=== PATIENT | female | born 1955 | race Caucasian/White ===

== ENCOUNTER 2016-08-29 13:29 | Outpatient (CLI) | payer SELFPAY | END 2016-08-29 13:30 | disposition home or self-care (01) | DX: R35.0 Frequency of micturition (principal) ==

== ENCOUNTER 2018-02-21 08:31 | Outpatient (CLI) | payer OTHER ==
--- NOTE | 2018-02-21 09:14 | XRAY Report ---
Procedure Date: 02/21/2018 Accession Number: [id number] / [id number] Procedure: XR - Chest 2 View X-Ray CPT Code: 86048 FULL RESULT: EXAM: CHEST RADIOGRAPHY EXAM DATE: 02/21/2018 08:59 AM. CLINICAL HISTORY: OSTEOPOROSIS,MEDICATION USE,OTHER FATIGUE. COMPARISON: 05/18/2010. TECHNIQUE: 2 views. FINDINGS: Lungs/Pleura: Right hilar surgical clips. No focal opacities evident. No pleural effusion. No pneumothorax. Mild elevation of the right hemidiaphragm similar to prior. Mediastinum: Heart and mediastinal contours are unremarkable. Other: No acute osseous abnormality. Nonvisualized right sixth rib may relate to prior thoracotomy. IMPRESSION: No acute cardiopulmonary abnormality. RADIA
--- NOTE | 2018-02-21 13:02 | DEXA Report ---
Procedure Date: 02/21/2018 Accession Number: [id number] / [id number] Procedure: DEX - Dexa Spine and/or Hip CPT Code: FULL RESULT: EXAM: DEXA SCAN DATE: 02/21/2018. HISTORY: 63-year-old postmenopausal female with low bone mineral density. Medication use. COMPARISON: None. TECHNIQUE: Lumbar spine and left hip were evaluated. FINDINGS: See separate data worksheet. Lumbar spine: Bone mineral density 1.118 g/sq cm, T score -0.4, Z score 0.1. Left hip: Neck: Bone mineral density 0.811 g/sq cm, T score -1.6, Z score -0.8. Total: Bone mineral density 0.896 g/sq cm, T score -0.9, Z score -0.4. IMPRESSION: Lumbar spine: Normal. Left hip: Normal. T score at or above -1 is normal. T score between -1 and 2.5 = Osteopenia T score at or below -2.5 = Osteoporosis. RADIA
== END 2018-02-21 08:32 | disposition home or self-care (01) ==
LOC: DI 08:31
PROVIDERS: ATTEND Physician Assistant Medical
DX: R53.83 Other fatigue (principal); M81.0 Age-related osteoporosis without current pathological fracture; Z78.0 Asymptomatic menopausal state; Z79.899 Other long term (current) drug therapy; Z85.43 Personal history of malignant neoplasm of ovary; Z80.1 Family history of malignant neoplasm of trachea, bronchus and lung
CPT/HCPCS: 71046; 77080

== ENCOUNTER 2018-11-03 11:45 | Outpatient (CLI) | payer BC ==
--- NOTE | 2018-11-03 13:06 | XRAY Report ---
Reason: POSTMENOPAUSAL STATE, BRONCHOGENIC CYST Procedure Date: 11/03/2018 Accession Number: [id number] / [id number] Procedure: XR - Chest 2 View X-Ray CPT Code: 70619 FULL RESULT: EXAM: CHEST RADIOGRAPHY EXAM DATE: 11/03/2018 12:07 PM. CLINICAL HISTORY: Postmenopausal state, bronchogenic cyst. COMPARISON: CHEST 2 VIEW 02/21/2018 8:53 AM. TECHNIQUE: 2 views. FINDINGS: Lungs/Pleura: There are postop changes with small surgical clips in the right pulmonary hilum, elevated right hemidiaphragm and chronic rib changes in the right posterolateral 6th, 8th and 9th ribs again, similar to prior exam. No new focal opacities evident. No pleural effusion. No pneumothorax. Mediastinum: Heart and mediastinal contours are unremarkable. Other: No new bony lesion seen. IMPRESSION: No significant interval change of the 2-view chest radiography with postop changes in the right chest. RADIA
== END 2018-11-03 11:46 | disposition home or self-care (01) ==
LOC: DI 11:45
PROVIDERS: ATTEND Physician Assistant Medical
DX: J98.4 Other disorders of lung (principal)
CPT/HCPCS: 71046

== ENCOUNTER 2018-11-07 15:24 | Outpatient (CLI) | payer BC ==
--- NOTE | 2018-11-10 14:56 | DEXA Report ---
Reason: POSTMENOPAUSAL STATE Procedure Date: 11/07/2018 Accession Number: [id number] / [id number] Procedure: DEX - Dexa Spine and/or Hip CPT Code: FULL RESULT: EXAM: Dexa Spine and/or Hip DATE: 11/07/2018 4:01 PM CLINICAL HISTORY: POSTMENOPAUSAL STATE TECHNIQUE: Dual energy x-ray absorptiometry (DXA) was performed on a [employer] System. Regions measured are the AP Spine, femoral neck, and if needed forearm. COMPARISON: 02/21/2018. In accordance with the International Society for Clinical Densitometry (ISCD) guidelines, data from previous exams may be reanalyzed using current recommendations and techniques. This is done to allow a more accurate basis for comparison with the current study. FINDINGS: The data for the lumbar spine is as follows: BMD (g/cm/cm) T-SCORE Z-SCORE REGION L1 0.942 -1.6 -1.1 L2 1.187 -0.1 0.4 L3 1.247 0.4 0.9 L4 excluded TOTAL 1.118 -0.3 0.2 NOTE: All evaluable vertebrae are used for classification The data for the hip is as follows: BMD (g/cm/cm) T-SCORE Z-SCORE REGION Neck 0.814 -1.6 -0.8 TOTAL 0.892 -0.9 -0.5 NOTE: The femoral neck or total proximal femur, whichever is lowest, is used for classification. DXA RESULTS SUMMARY: Spine SCAN DATE AGE BMD CHANGE VS CHANGE VS PREVIOUS PREVIOUS % [birth year]07/2018 62.7 1.133 0.015 1.3 02/21/2018 63.0 1.118 * Denotes significant change at the 95% confidence level. Denotes dissimilar scan types or analysis methods. DXA RESULTS SUMMARY: Hip SCAN DATE AGE BMD CHANGE VS CHANGE VS PREVIOUS PREVIOUS % [birth year]2018 62.7 0.892 -0.004 -0.4 02/21/2018 63.0 0.896 * Denotes significant change at the 95% confidence level. Denotes dissimilar scan types or analysis methods. IMPRESSION: THE WHO CLASSIFICATION BASED ON THE INTERNATIONAL REFERENCE STANDARD IS OSTEOPENIA. THE FRACTURE RISK IS INCREASED. RECOMMENDATION: Patients with diagnosis of osteoporosis or osteopenia should have regular bone mineral density assessment. For those eligible for Medicare, routine testing is allowed once every 2 years. Testing frequency can be increased for patients who have rapidly progressing disease or for those who are receiving medical therapy to restore bone mass. COMMENT: World Health Organization (WHO) definitions for osteoporosis and osteopenia: NORMAL BMD: T-score at -1.0 or higher, fracture risk is low OSTEOPENIA BMD: T-score between -1.0 and -2.5, fracture risk is increased. OSTEOPOROSIS BMD: T-score at -2.5 or lower, fracture risk is high. National Osteoporosis Foundation recommends: 1. Obtain adequate dietary calcium (at least 1200 mg per day) and vitamin D (400-800 international units per day). 2. Participate, as appropriate, in regular weightbearing and muscle-strengthening exercise. 3. Avoid tobacco use and reduce alcohol and caffeine intake. 4. For more detailed information see the website at www.NOF.org.
== END 2018-11-07 15:25 | disposition home or self-care (01) ==
LOC: DI 15:24
PROVIDERS: ATTEND Physician Assistant Medical
DX: M85.88 Other specified disorders of bone density and structure, other site (principal)
CPT/HCPCS: 77080

== ENCOUNTER 2018-11-07 15:30 | Outpatient (CLI) | payer BC ==
--- NOTE | 2018-11-10 09:02 | Mammography Report ---
Reason: SCREENING MAMMO Procedure Date: 11/07/2018 Accession Number: [id number] / [id number] Procedure: NATALIE - Screening Mammo w/Mg CPT Code: FULL RESULT: EXAM: Screening Mammo w/Mg DATE: 11/07/2018 4:10 PM CLINICAL HISTORY: Screening exam. Personal history of ovarian cancer at the age of 35. History of breast reduction mammoplasty. TECHNIQUE: (B) - Bilateral CC and MLO views were obtained. COMPARISON: 04/12/2011 and 02/16/2010. PARENCHYMAL PATTERN: (F) - The breast(s) demonstrate(s) diffuse fatty replacement. FINDINGS: There are no suspicious masses, calcifications, or areas of distortion. IMPRESSION: Negative examination. BI-RADS category 1. RECOMMENDATION: (ANNUAL) - Recommend routine annual screening mammography. BI-RADS CATEGORY: (1) - Negative. STANDARD QUALIFYING STATEMENTS: 1. This examination was not reviewed with the aid of Computer-Aided Detection (CAD). 2. A negative or benign imaging report should not preclude biopsy if clinically suspicious findings are present. 3. Dense breasts may obscure an underlying neoplasm. 4. This examination was reviewed with the aid of 3D breast imaging (tomosynthesis).
== END 2018-11-07 15:31 | disposition home or self-care (01) ==
LOC: DI 15:30
PROVIDERS: ATTEND Physician Assistant Medical
DX: Z12.31 Encounter for screening mammogram for malignant neoplasm of breast (principal)
CPT/HCPCS: 77063; 77067

== ENCOUNTER 2019-02-18 13:00 | Outpatient (CLI) | payer BC ==
[2019-02-18 13:46] LABS: ALBUMIN 4.3 g/dL (3.2-5.5); ALBUMIN/GLOBULIN RATIO 1.3 (1.0-2.2); BASOPHILS # (AUTO) 0.1 10^3/uL (0.0-0.1); BASOPHILS % (AUTO) 0.6 %; BILIRUBIN,TOTAL 0.7 mg/dL (0.2-1.0); CALCIUM 9.8 mg/dL (8.5-10.3); CREATININE 0.8 mg/dL (0.4-1.0); EOSINOPHILS # (AUTO) 0.1 10^3/uL (0.0-0.7); EOSINOPHILS % (AUTO) 1.8 %; HGB - HEMOGLOBIN 14.1 g/dL (12.0-16.0); LYMPHOCYTES # (AUTO) 1.6 10^3/uL (1.5-3.5); LYMPHOCYTES % (AUTO) 19.7 %; MEAN CORPUSCULAR HEMOGLOBIN 29.3 pg (27.0-31.0); MEAN CORPUSCULAR HGB CONC 32.9 g/dL (32.0-36.0); MEAN CORPUSCULAR VOLUME 89.2 fL (81.0-99.0); MEAN PLATELET VOLUME 10.9 fL (7.9-10.8); MONOCYTES # (AUTO) 0.8 10^3/uL (0.0-1.0); MONOCYTES % (AUTO) 9.6 %; NEUTROPHILS # (AUTO) 5.4 10^3/uL (1.5-6.6); NEUTROPHILS % (AUTO) 68.2 %; PLT - PLATELET COUNT 196 10^3/uL (130-450); RED BLOOD COUNT 4.81 10^6/uL (4.20-5.40); RED CELL DISTRIBUTION WIDTH 13.2 % (12.0-15.0); TOTAL PROTEIN 7.7 g/dL (6.7-8.2); WHITE BLOOD COUNT 7.9 x10^3/uL (4.8-10.8)
[2019-02-18 15:05] LABS: THYROID STIMULATING HORMONE 7.57 uIU/mL (0.34-5.60)
[2019-02-18 15:07] LABS: FREE T4 (FREE THYROXINE) 1.08 ng/dL (0.58-1.64)
== END 2019-02-18 13:01 | disposition home or self-care (01) ==
LOC: LAB 13:00
PROVIDERS: ATTEND Family Medicine
DX: I10 Essential (primary) hypertension (principal); E03.9 Hypothyroidism, unspecified
CPT/HCPCS: 36415; 80053; 84439; 84443; 84481; 85025

== ENCOUNTER 2019-05-18 07:42 | Outpatient (CLI) | payer BC ==
[2019-05-18 08:07] LABS: HGB - HEMOGLOBIN 14.1 g/dL (12.0-16.0); MEAN CORPUSCULAR HEMOGLOBIN 28.8 pg (27.0-31.0); MEAN CORPUSCULAR HGB CONC 32.9 g/dL (32.0-36.0); MEAN CORPUSCULAR VOLUME 87.5 fL (81.0-99.0); MEAN PLATELET VOLUME 10.5 fL (7.9-10.8); RED BLOOD COUNT 4.89 10^6/uL (4.20-5.40); RED CELL DISTRIBUTION WIDTH 13.4 % (12.0-15.0); WHITE BLOOD COUNT 9.3 x10^3/uL (4.8-10.8)
[2019-05-18 08:29] LABS: T4 (THYROXINE) 11.8 ug/dL (6.09-12.23)
[2019-05-18 08:33] LABS: THYROID STIMULATING HORMONE 0.32 uIU/mL (0.34-5.60)
[2019-05-18 08:35] LABS: FREE T4 (FREE THYROXINE) 1.3 ng/dL (0.58-1.64)
[2019-05-18 08:49] LABS: URIC ACID 4.9 mg/dL (2.6-7.2)
[2019-05-18 08:57] LABS: RHEUMATOID FACTOR NEGATIVE (Negative)
[2019-05-20 20:12] LABS: ANA SCREEN NEGATIVE (NEGATIVE)
== END 2019-05-18 07:43 | disposition home or self-care (01) ==
LOC: LAB 07:42
PROVIDERS: ATTEND Physician Assistant Medical
DX: E03.9 Hypothyroidism, unspecified (principal); M25.50 Pain in unspecified joint
CPT/HCPCS: 36415; 84436; 84439; 84443; 84550; 85027; 85651; 86038; 86140; 86200; 86430

== ENCOUNTER 2019-09-11 15:27 | Outpatient (CLI) | payer BC ==
[2019-09-11 16:30] LABS: THYROID STIMULATING HORMONE 0.38 uIU/mL (0.34-5.60)
[2019-09-11 16:32] LABS: FREE T4 (FREE THYROXINE) 0.9 ng/dL (0.58-1.64)
--- NOTE | 2019-09-12 02:31 | XRAY Report ---
Reason: HYPOTHYROID,HAND PAIN Procedure Date: 09/11/2019 Accession Number: [id number] / [id number] Procedure: XR - Hand 2 View BILAT CPT Code: Final Report FULL RESULT: EXAMS: 1. Right Hand Radiography 2. Left Hand Radiography EXAM DATE: 09/11/2019 05:05 PM. CLINICAL HISTORY: HYPOTHYROID, HAND PAIN. COMPARISON: XR HAND 2 VIEW 10/26/2008 2:53 PM. TECHNIQUE: 3 views each hand. FINDINGS: Right: Bones: Osteopenia. No fractures. 6 mm cyst in the proximal first metacarpal with well-defined sclerotic borders likely represents a subchondral cyst. Joints: First carpometacarpal joint space narrowing with marginal osteophyte formation and sclerosis. Narrowing and marginal osteophyte formation in the interphalangeal joints, greatest at the first interphalangeal joint. No subluxation. Soft Tissues: Soft tissue swelling at the first interphalangeal joint. Left: Bones: Normal. No fractures or bone lesions. Joints: Degenerative changes at the first carpometacarpal joint space with joint space narrowing, osteophytes, and subchondral sclerosis and cysts, increased since the prior exam. Mild narrowing of the proximal and distal interphalangeal joints with osteophyte formation at the first interphalangeal joint. No subluxation. Soft Tissues: Normal. No soft tissue swelling. IMPRESSION: 1. Extensive osteoarthritic changes in the right interphalangeal joints and first carpometacarpal joints. 2. Slightly increased osteoarthritis in the left first carpometacarpal joint. RADIA
== END 2019-09-11 15:28 | disposition home or self-care (01) ==
LOC: LAB 15:27 → DI 15:28
PROVIDERS: ATTEND Family Medicine
DX: M18.0 Bilateral primary osteoarthritis of first carpometacarpal joints (principal); M19.042 Primary osteoarthritis, left hand; M19.041 Primary osteoarthritis, right hand; E03.9 Hypothyroidism, unspecified
CPT/HCPCS: 36415; 84439; 84443; 84481; 85651; 86140

== ENCOUNTER 2019-10-09 08:09 | Outpatient (CLI) | payer BC ==
[2019-10-09] MEDS ORDERED: IOVERSOL 320 100 ML VIAL IVP ONE ×2 (09:20→10:53)
[2019-10-09] MEDS ORDERED: IOVERSOL 320 50 ML VIAL ONE (09:20)
[2019-10-09 09:35] LABS: CALCIUM 8.9 mg/dL (8.5-10.3); CREATININE 0.7 mg/dL (0.4-1.0)
[2019-10-09] MEDS ORDERED: IOVERSOL 320 50 ML VIAL PO ONE (10:53)
--- NOTE | 2019-10-10 09:53 | CT Report ---
Reason: CHRONIC ABD PAIN, STG 3 OVARIAN CA Procedure Date: 10/09/2019 Accession Number: [id number] / [id number] Procedure: CT - Abdomen/Pelvis W CPT Code: Final Report FULL RESULT: EXAM: CT ABDOMEN AND PELVIS EXAM DATE: 10/09/2019 10:48 AM. CLINICAL HISTORY: Chronic abdominal pain, stage III ovarian cancer. COMPARISONS: CT of the abdomen and pelvis from 11/08/2009. TECHNIQUE: Routine helical CT imaging was performed through the abdomen and pelvis. IV contrast: 100 cc Optiray 320. Enteric contrast: Yes. Reconstructions: Coronal and sagittal. In accordance with CT protocol optimization, one or more of the following dose reduction techniques were utilized for this exam: automated exposure control, adjustment of mA and/or KV based on patient size, or use of iterative reconstructive technique. FINDINGS: Lung Bases: There are linear opacities in the right lower lobe and lingula, which are new from the prior examination but suggestive of atelectasis or scar. No pleural effusion. Partially visualized mediastinal mass, demonstrated on the prior examination, is no longer demonstrated. Liver: The dome of the right hepatic lobe is not included in the examination. There is diffuse low attenuation of the liver, compatible with steatosis. No focal lesions are demonstrated. Gallbladder/Bile Ducts: Unremarkable. Spleen: Within normal limits. Pancreas: Unremarkable. Adrenal Glands: No nodules. Kidneys: No focal lesions or hydronephrosis. Peritoneal Cavity/Bowel: There is a small hiatal hernia. No evidence of bowel obstruction or inflammation. Cecum is located in the pelvis. There appears to be either a short appendix or appendiceal remnant, which is normal in caliber (series 10, image 33). There is diverticulosis of the descending and sigmoid colon. No evidence for acute diverticulitis. Pelvic Organs: The uterus and ovaries are surgically absent. There are also [place] along the iliac vessels, suggestive of previous node dissection. No adenopathy or free fluid. Vasculature: No abdominal aortic aneurysm. Bones: No suspicious osseous lesion. Multilevel degenerative changes are present in the lumbar spine. There is sacralization of the right L5 transverse process. Other: No retroperitoneal adenopathy. IMPRESSION: 1. No evidence of acute infectious or inflammatory process in the abdomen or pelvis. 2. Postsurgical changes from hysterectomy, bilateral salpingo-oophorectomy, and pelvic node dissection. No findings concerning for metastatic disease in the abdomen or pelvis. Previous partially visualized mediastinal mass is no longer demonstrated. 3. Hepatic steatosis. RADIA
== END 2019-10-09 08:10 | disposition home or self-care (01) ==
LOC: DI 08:09
PROVIDERS: ATTEND Nurse Practitioner
DX: R10.9 Unspecified abdominal pain (principal); K76.0 Fatty (change of) liver, not elsewhere classified; Z90.710 Acquired absence of both cervix and uterus; C56.9 Malignant neoplasm of unspecified ovary; Z90.79 Acquired absence of other genital organ(s); Z90.722 Acquired absence of ovaries, bilateral
CPT/HCPCS: 36415; 74177; 80048; Q9967

== ENCOUNTER 2020-06-13 11:32 | Outpatient (CLI) | payer BC ==
[2020-06-13 12:10] LABS: BASOPHILS % (AUTO) 0.6 %; EOSINOPHILS # (AUTO) 0.2 10^3/uL (0.0-0.7); EOSINOPHILS % (AUTO) 2.7 %; HGB - HEMOGLOBIN 13.3 g/dL (12.0-16.0); LYMPHOCYTES # (AUTO) 1.3 10^3/uL (1.5-3.5); MEAN CORPUSCULAR HEMOGLOBIN 29.2 pg (27.0-31.0); MEAN CORPUSCULAR HGB CONC 33.3 g/dL (32.0-36.0); MEAN CORPUSCULAR VOLUME 87.5 fL (81.0-99.0); MEAN PLATELET VOLUME 10.8 fL (7.9-10.8); MONOCYTES # (AUTO) 0.7 10^3/uL (0.0-1.0); MONOCYTES % (AUTO) 10.8 %; NEUTROPHILS # (AUTO) 4.5 10^3/uL (1.5-6.6); NEUTROPHILS % (AUTO) 66.8 %; PLT - PLATELET COUNT 177 10^3/uL (130-450); RED BLOOD COUNT 4.56 10^6/uL (4.20-5.40); RED CELL DISTRIBUTION WIDTH 12.6 % (12.0-15.0); WHITE BLOOD COUNT 6.8 x10^3/uL (4.8-10.8)
[2020-06-13 12:29] LABS: ALBUMIN 3.8 g/dL (3.2-5.5); ALBUMIN/GLOBULIN RATIO 1.3 (1.0-2.2); ALKALINE PHOSPHATASE 67 IU/L (42-121); ALT ALANINE AMINOTRANSFERASE 27 IU/L (10-60); AST ASPARTATE AMINOTRANSFERASE 26 IU/L (10-42); BILIRUBIN,TOTAL 0.6 mg/dL (0.2-1.0); BUN - BLOOD UREA NITROGEN 14 mg/dL (6-20); CALCIUM 9.4 mg/dL (8.5-10.3); CARBON DIOXIDE - CO2 27 mmol/L (21-32); CHLORIDE 104 mmol/L (101-111); CHOL/HDL RATIO 2.8 (<4.4); CHOLESTEROL 192 mg/dL; CREATININE 0.7 mg/dL (0.4-1.0); GLUCOSE 108 mg/dL (70-100); HDL CHOLESTEROL 68 mg/dL; LDL CHOLESTEROL,CALCULATED 113 mg/dL; LDL/HDL RATIO 1.7 (<4.4); SODIUM 142 mmol/L (135-145); TOTAL PROTEIN 6.8 g/dL (6.7-8.2); VLDL CHOLESTEROL 11 mg/dL
[2020-06-13 12:35] LABS: CA 125 26.6 U/mL (0.0-35.0)
[2020-06-13 13:27] LABS: FREE T4 (FREE THYROXINE) 1.52 ng/dL (0.58-1.64)
== END 2020-06-13 11:33 | disposition home or self-care (01) ==
LOC: LAB 11:32
PROVIDERS: ATTEND Nurse Practitioner
DX: M25.50 Pain in unspecified joint (principal); E03.9 Hypothyroidism, unspecified; I10 Essential (primary) hypertension; M81.0 Age-related osteoporosis without current pathological fracture; E78.2 Mixed hyperlipidemia; F32.9 Major depressive disorder, single episode, unspecified; C56.9 Malignant neoplasm of unspecified ovary
CPT/HCPCS: 36415; 80053; 80061; 83721; 84439; 84443; 85025; 86304

== ENCOUNTER 2020-06-14 13:54 | Outpatient (CLI) | payer BC ==
--- NOTE | 2020-06-14 16:46 | XRAY Report ---
PROCEDURE: Hip w/Pelvis 2-3V LT INDICATIONS: LT HIP PAIN TECHNIQUE: AP pelvis with lateral view(s) of the bilateral hip(s). COMPARISON: None. FINDINGS: Bones: No fractures or dislocations. Pelvic ring appears intact. No suspicious bony lesions. Mild bilateral degenerative hip joint space narrowing is present. No erosions. Changes are present within the lower lumbar spine. Soft tissues: The visualized bowel gas pattern is normal. No suspicious soft tissue calcifications. IMPRESSION: Degenerative hip changes suggestive of arthritis. Reviewed by: Kaelyn Mcghee MD on 06/14/2020 4:44 PM PST Approved by: Kaelyn Mcghee MD on 06/14/2020 4:44 PM PST Station ID: [id number]
== END 2020-06-14 13:55 | disposition home or self-care (01) ==
LOC: DI 13:54
PROVIDERS: ATTEND Nurse Practitioner
DX: M16.12 Unilateral primary osteoarthritis, left hip (principal)

== ENCOUNTER 2020-07-18 13:26 | Emergency (ER) | payer BC ==
[2020-07-18 14:03] LABS: BASOPHILS % (AUTO) 0.5 %; EOSINOPHILS # (AUTO) 0.1 10^3/uL (0.0-0.7); EOSINOPHILS % (AUTO) 1.3 %; LYMPHOCYTES # (AUTO) 1.4 10^3/uL (1.5-3.5); LYMPHOCYTES % (AUTO) 16.2 %; MEAN CORPUSCULAR HEMOGLOBIN 28.5 pg (27.0-31.0); MEAN CORPUSCULAR HGB CONC 33.1 g/dL (32.0-36.0); MEAN PLATELET VOLUME 10.4 fL (7.9-10.8); MONOCYTES # (AUTO) 0.9 10^3/uL (0.0-1.0); MONOCYTES % (AUTO) 10.7 %; NEUTROPHILS # (AUTO) 5.9 10^3/uL (1.5-6.6); NEUTROPHILS % (AUTO) 71.1 %; PLT - PLATELET COUNT 186 10^3/uL (130-450); RED BLOOD COUNT 4.92 10^6/uL (4.20-5.40); RED CELL DISTRIBUTION WIDTH 13.1 % (12.0-15.0); WHITE BLOOD COUNT 8.3 x10^3/uL (4.8-10.8)
[2020-07-18 14:22] LABS: ALBUMIN 3.8 g/dL (3.2-5.5); BILIRUBIN,TOTAL 1.3 mg/dL (0.2-1.0); CALCIUM 9.5 mg/dL (8.5-10.3); CREATININE 0.8 mg/dL (0.4-1.0); TOTAL PROTEIN 7.7 g/dL (6.7-8.2)
[2020-07-18 15:17] VITALS: BP 141/86
--- NOTE | 2020-07-18 15:36 | ED Physician Documentation ---
PD HPI ABD PAIN - Stated complaint Stated Complaint: ABD PX - Chief complaint Chief Complaint: Abd Pain - History obtained from History obtained from: Patient - History of Present Illness Timing - onset: How many days ago (2) Timing - duration: Days (2) Timing - details: Gradual onset Pain level max: 8 Pain level now: 6 Quality: Aching, Pain Location: LLQ Radiation: No: Chest, , Lower back, Left flank, Left shoulder, Right flank, Right shoulder, Upper back Improved by: Laying still Worsened by: Palpation Associated symptoms: Diarrhea (Diarrhea with a small amount of bright red blood per rectum.), Hematochezia. No: Fever, Nausea, Vomiting, Hematemesis, Dysuria, Hematuria, Chest pain, Near syncope / syncope, Loss of appetite, Weight loss Similar symptoms before: Diagnosis (Diverticulosis) Review of Systems Constitutional: denies: Fever, Chills Cardiac: denies: Chest pain / pressure Respiratory: denies: Cough GI: reports: Abdominal Pain (Left lower quadrant abdominal pain. Nonradiating.). denies: Vomiting : denies: Dysuria Skin: denies: Rash Musculoskeletal: denies: Neck pain, Back pain Neurologic: denies: Headache PD PAST MEDICAL HISTORY - Past Medical History Past Medical History: Yes Cardiovascular: Hypertension, High cholesterol Respiratory: None Neuro: Tremors Endocrine/Autoimmune: HyPOthyroidism GI: Hiatal hernia, Diverticulitis IMMUNOCHEMIST: Ovarian cancer : None HEENT: None Psych: None Musculoskeletal: Osteoarthritis Derm: None - Past Surgical History Past Surgical History: Yes General: Appendectomy /IMMUNOCHEMIST: section, Hysterectomy, Oophrectomy - Present Medications Home Medications: Ambulatory Orders Medication Instructions Recorded Confirmed Amlodipine Besylate [Norvasc] 5 mg PO DAILY PM 07/18/20 07/18/20 Amox/Clav 875/125 [Augmentin] 1 tab PO Q8H #30 tablet 07/18/20 Aspirin EC [Ecotrin] 650 mg PO TID PRN 07/18/20 07/18/20 Furosemide [Lasix] 10 - 20 mg PO DAILY PRN 07/18/20 07/18/20 Levothyroxine Sodium [Euthyrox] 100 mcg PO DAILY 07/18/20 07/18/20 Losartan [Cozaar] 50 mg PO DAILY 07/18/20 07/18/20 Ondansetron Odt [Zofran] 4 mg TL Q6H PRN #10 tablet 07/18/20 - Allergies Allergies/Adverse Reactions: Allergies Allergy/AdvReac Type Severity Reaction Status Date / Time celecoxib [From Celebrex] Allergy Unknown Verified 07/18/20 13:49 ibuprofen Allergy Unknown Verified 07/18/20 13:49 lisinopril Allergy Unknown Verified 07/18/20 13:49 - Social History Does the pt smoke?: No Smoking Status: Never smoker Does the pt drink ETOH?: No Does the pt have substance abuse?: No - Immunizations Immunizations are current?: Yes PD ED PE NORMAL - Vitals Vital signs reviewed: Yes - General General: Alert and oriented X 3, No acute distress - HEENT HEENT: Moist mucous membranes - Neck Neck: Supple, no meningeal sign - Cardiac Cardiac: RRR - Respiratory Respiratory: No respiratory distress, Clear bilaterally - Abdomen Abdomen: Soft, Other (Tender to palpation left lower quadrant. No peritoneal signs.) - Female Female : Pt declined - Back Back: No spinal TTP - Derm Derm: Warm and dry - Neuro Neuro: Alert and oriented X 3 - Psych Psych: Normal mood, Normal affect Results - Vitals Vitals: Vital Signs - 24 hr 07/18/20 07/18/20 07/18/20 13:41 14:08 15:16 Temperature 37.3 C 37.4 C 37.6 C Heart Rate 100 90 73 Respiratory 16 16 16 Rate Blood Pressure 150/99 H 169/88 H 141/86 H O2 Saturation 97 98 99 Oxygen O2 Source Room air - Labs Labs: Laboratory Tests 07/18/20 07/18/20 07/18/20 13:58 13:58 16:10 WBC 8.3 RBC 4.92 Hgb 14.0 Hct 42.3 MCV 86.0 MCH 28.5 MCHC 33.1 RDW 13.1 Plt Count 186 MPV 10.4 Neut # (Auto) 5.9 Lymph # (Auto) 1.4 L [place] # (Auto) 0.9 Eos # (Auto) 0.1 Baso # (Auto) 0.0 Absolute Nucleated RBC 0.00 Nucleated RBC % 0.0 Sodium 141 Potassium 3.6 Chloride 104 Carbon Dioxide 23 Anion Gap 14.0 H BUN 11 Creatinine 0.8 Estimated GFR (MDRD) 72 L Glucose 104 H Calcium 9.5 Total Bilirubin 1.3 H AST 23 ALT 27 Alkaline Phosphatase 88 Total Protein 7.7 Albumin 3.8 Globulin 3.9 Albumin/Globulin Ratio 1.0 Lipase 32 Urine Color YELLOW Urine Clarity CLEAR Urine pH 6.5 Ur Specific [place] <=1.005 Urine Protein NEGATIVE Urine Glucose (UA) NEGATIVE Urine Ketones NEGATIVE Urine Occult Blood NEGATIVE Urine Nitrite NEGATIVE Urine Bilirubin NEGATIVE Urine Urobilinogen 0.2 (NORMAL) Ur Leukocyte Esterase NEGATIVE Ur Microscopic Review NOT INDICATED Urine Culture Comments NOT INDICATED - Rads (name of study) CT abdomen and pelvis Radiology: Prelim report reviewed, EMP read contemporaneously, See rad report PD MEDICAL DECISION MAKING - ED course Complexity details: reviewed results, re-evaluated patient, considered differential, d/w patient ED course: 65-year-old female with abdominal pain. Found to have a mild acute diverticulitis of the descending and sigmoid colon. Discussed risks and benefits of antibiotics including C. difficile diarrhea. Also discussed that mild case of diverticulitis may not need antibiotics. The patient has elected to proceed with antibiotics. She does understand the risks and benefits. Patient is well-appearing, nontoxic. Afebrile. Patient counseled regarding signs and symptoms for which I believe and urgent re-evaluation would be necessary. Patient with good understanding of and agreement to plan and is comfortable going home at this time This document was made in part using voice recognition software. While efforts are made to proofread this document, sound alike and grammatical errors may occur. IMPRESSION: No abscess found but there is definite mild acute diverticulitis involving the junction of the descending colon as it transitions to the sigmoid colon. A peridiverticular abscess is not associated. Prior hysterectomy. No evidence of free air throughout the peritoneal space. Departure - Departure Disposition: 01 Home, Self Care Clinical Impression: Diverticulitis Condition: Good Instructions: ED Diverticulitis Follow-Up: Kathleen Mosqueda ARNP, [facility] [Primary Care Provider] - Within 1 week Prescriptions: Amox/Clav 875/125 [Augmentin] 1 tab PO Q8H #30 tablet Ondansetron Odt [Zofran] 4 mg TL Q6H PRN #10 tablet PRN Reason: Nausea / Vomiting Comments: Take all antibiotics until gone. Return if you worsen. Follow-up with your doctor for further care.
[2020-07-18] MEDS ORDERED: IOVERSOL 320 100 ML VIAL IVP ONE ×2 (15:46→16:01)
[2020-07-18 16:16] LABS: BILIRUBIN,URINE NEGATIVE (NEGATIVE); GLUCOSE, URINE (UA) NEGATIVE (NEGATIVE); KETONES,URINE (UA) NEGATIVE (NEGATIVE); LEUKOCYTE ESTERASE, URINE NEGATIVE (NEGATIVE); NITRITE,URINE NEGATIVE (NEGATIVE); OCCULT BLOOD,URINE NEGATIVE (NEGATIVE); PH,URINE 6.5 PH (5.0-7.5); PROTEIN,URINE NEGATIVE (NEGATIVE); UROBILINOGEN,URINE 0.2 (NORMAL) E.U./dL (NORMAL)
[2020-07-18 16:20] LABS: CLARITY,URINE CLEAR (CLEAR)
--- NOTE | 2020-07-18 16:22 | CT Report ---
PROCEDURE: Abdomen/Pelvis W INDICATIONS: LLQ pain, diverticulitis suspected CONTRAST: IV CONTRAST: Optiray 320 ml: 100 PO CONTRAST: *NO PO CONTRAST TECHNIQUE: After the administration of contrast, 5 mm thick sections acquired from the diaphragms to the sym physis. 5 mm thick coronal and sagittal reformats were acquired. For radiation dose reduction, the following was used: automated exposure control, adjustment of mA and/or kV according to patient size . COMPARISON: None. FINDINGS: Image quality: Excellent. ABDOMEN: Lung bases: Lung bases are clear except for mild atelectasis. Heart size is normal. Solid organs: Liver and spleen are normal in size and enhancement. Gallbladder appears normal Bili abida system is non dilated. Pancreas enhances normally. No adrenal nodules. Kidneys demonstrate nor mal size and enhancement, without hydronephrosis. Peritoneum and bowel: Bowel loops demonstrate normal wall thickness and caliber. No free fluid or a ir. Nodes and vessels: No retroperitoneal or mesenteric adenopathy by size criteria. Aorta and inferior vena cava are normal in size. Miscellaneous: No ventral hernias. PELVIS: Genitourinary: Bladder wall thickness is normal. Note is made of prior hysterectomy. Miscellaneous: No inguinal hernias or adenopathy. Acute diverticulitis is seen at the left lower qu adrant involving the junction of the descending colon and proximal sigmoid colon. No peridiverticular abscess is present but there is mild edema within the adjacent pericolonic fat. Bones: No suspicious bony lesions. No vertebral body compression fractures. IMPRESSION: No abscess found but there is definite mild acute diverticulitis involving the junction of the descending colon as it transitions to the sigmoid colon. A peridiverticular abscess is not ass ociated. Prior hysterectomy. No evidence of free air throughout the peritoneal space. Reviewed by: Kamran Avery MD on 07/18/2020 4:21 PM PST Approved by: Kamran Avery MD on 07/18/2020 4:21 PM PST Station ID: [id number]
== END 2020-07-18 16:44 | disposition home or self-care (01) ==
LOC: ED 13:26
DX: K57.32 Diverticulitis of large intestine without perforation or abscess without bleeding (principal); I10 Essential (primary) hypertension
CPT/HCPCS: 36415; 74177; 80053; 81003; 83690; 85025; 99284; Q9967; 81001; 87086

== ENCOUNTER 2020-08-01 16:16 | Inpatient (IN) | payer BC ==
[2020-08-01] MEDS ORDERED: SODIUM CHLORIDE 0.9% 1,000 ML IV STA ×2 (16:34)
[2020-08-01] MEDS ORDERED: IOVERSOL 320 100 ML VIAL IVP ONE ×2 (16:47→17:08)
[2020-08-01 16:57] LABS: BASOPHILS % (AUTO) 0.2 %; HGB - HEMOGLOBIN 11.7 g/dL (12.0-16.0); LYMPHOCYTES # (AUTO) 0.9 10^3/uL (1.5-3.5); LYMPHOCYTES % (AUTO) 8.7 %; MEAN CORPUSCULAR HEMOGLOBIN 28.3 pg (27.0-31.0); MEAN PLATELET VOLUME 10.5 fL (7.9-10.8); MONOCYTES # (AUTO) 1.3 10^3/uL (0.0-1.0); MONOCYTES % (AUTO) 13.1 %; NEUTROPHILS # (AUTO) 7.6 10^3/uL (1.5-6.6); NEUTROPHILS % (AUTO) 77.5 %; PLT - PLATELET COUNT 142 10^3/uL (130-450); RED BLOOD COUNT 4.13 10^6/uL (4.20-5.40); RED CELL DISTRIBUTION WIDTH 12.6 % (12.0-15.0); WHITE BLOOD COUNT 9.8 x10^3/uL (4.8-10.8)
[2020-08-01 17:13] LABS: ALBUMIN 3.3 g/dL (3.2-5.5); BILIRUBIN,TOTAL 0.7 mg/dL (0.2-1.0); CREATININE 0.5 mg/dL (0.4-1.0); TOTAL PROTEIN 6.6 g/dL (6.7-8.2)
--- NOTE | 2020-08-01 17:18 | CT Report ---
PROCEDURE: Abdomen/Pelvis W INDICATIONS: Recent diverticulitis, now increase pain and fever CONTRAST: IV CONTRAST: Optiray 320 ml: 100 PO CONTRAST: *NO PO CONTRAST TECHNIQUE: After the administration of intravenous contrast, 5 mm thick sections acquired from the diaphragms to the symphysis. 5 mm thick coronal and sagittal reformats were acquired. For radiation dose reducti on, the following was used: automated exposure control, adjustment of mA and/or kV according to ivania ent size. COMPARISON: 07/18/2020 FINDINGS: Image quality: Excellent. ABDOMEN: Lung bases: Mild right basilar atelectasis versus scarring is similar. Lung bases are otherwise kamini r. Heart size is normal. Solid organs: Liver and spleen are normal in size and enhancement. Gallbladder is normal. Biliary system is non dilated. Pancreas enhances normally. No adrenal nodules. Kidneys demonstrate normal size and enhancement, without hydronephrosis. Peritoneum and bowel: Sigmoid colonic wall thickening and adjacent inflammatory changes are slightly worsened when compared with the prior study. There is no evidence of perforation or associated fluid collection/abscess. No abnormally dilated loop of bowel. Several small but not threshold enlarged lef t retroperitoneal lymph nodes are likely reactive. Nodes and vessels: The aorta and inferior vena cava are normal in size. No additional threshold enla rged mesenteric lymph node identified. Miscellaneous: No ventral hernias. PELVIS: Genitourinary: Bladder wall thickness is normal. Prior hysterectomy. Miscellaneous: No inguinal hernias or adenopathy. Bones: No suspicious bony lesions. No vertebral body compression fractures. IMPRESSION: Interval worsening of diverticulitis, again without evidence of perforation or associate d abscess. Reviewed by: Sridhar Buck MD on 08/01/2020 5:17 PM PST Approved by: Sridhar Buck MD on 08/01/2020 5:17 PM PST Station ID: [id number]
--- NOTE | 2020-08-01 17:32 | ED Physician Documentation ---
PD HPI ABD PAIN - Stated complaint Stated Complaint: FEVER, NOT EATING - Chief complaint Chief Complaint: Abd Pain - History obtained from History obtained from: Patient - History of Present Illness Timing - onset: How many weeks ago (2) Timing - duration: Weeks (2) Timing - details: Gradual onset Pain level max: 8 Pain level now: 8 Quality: Aching, Pain Location: LLQ Improved by: Other (nothing) Worsened by: Moving, Palpation Associated symptoms: Nausea. No: Fever, Vomiting, Hematemesis, Diarrhea, Constipation, Melena, Hematochezia Recently seen: Emergency Dept (dx with diverticulitis. placed on abx, finished 3 days ago and has worsening symptoms now. 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 : None HEENT: None Psych: None Musculoskeletal: Osteoarthritis Derm: None - Past Surgical History Past Surgical History: Yes General: Appendectomy /DAIRY LABORATORY TECHNICIAN: section, Hysterectomy, Oophrectomy - Present Medications Home Medications: Ambulatory Orders Medication Instructions Recorded Confirmed Amlodipine Besylate [Norvasc] 5 mg PO DAILY PM 07/18/20 07/18/20 Amox/Clav 875/125 [Augmentin] 1 tab PO Q8H #30 tablet 07/18/20 Aspirin EC [Ecotrin] 650 mg PO TID PRN 07/18/20 07/18/20 Furosemide [Lasix] 10 - 20 mg PO DAILY PRN 07/18/20 07/18/20 Levothyroxine Sodium [Euthyrox] 100 mcg PO DAILY 07/18/20 07/18/20 Losartan [Cozaar] 50 mg PO DAILY 07/18/20 07/18/20 Ondansetron Odt [Zofran] 4 mg TL Q6H PRN #10 tablet 07/18/20 - Allergies Allergies/Adverse Reactions: Allergies Allergy/AdvReac Type Severity Reaction Status Date / Time celecoxib [From Celebrex] Allergy Unknown Verified 08/01/20 16:28 hydroxyzine [From Vistaril] Allergy Unknown Verified 08/01/20 16:28 ibuprofen Allergy Unknown Verified 08/01/20 16:28 lisinopril Allergy Unknown Verified 08/01/20 16:28 wheat Allergy Unknown Verified 08/01/20 16:28 dairy Allergy Unknown Uncoded 08/01/20 16:28 - Social History Does the pt smoke?: No Smoking Status: Never smoker Does the pt drink ETOH?: No Does the pt have substance abuse?: No - Immunizations Immunizations are current?: Yes - POLST Patient has POLST: No PD ED PE NORMAL - Vitals Vital signs reviewed: Yes - General General: Alert and oriented X 3, No acute distress, Well developed/nourished - HEENT HEENT: Moist mucous membranes - Neck Neck: Supple, no meningeal sign - Cardiac Cardiac: RRR, Strong equal pulses - Respiratory Respiratory: No respiratory distress, Clear bilaterally - Abdomen Abdomen: Soft, Non distended, Other (Tender palpation left lower quadrant. No peritoneal signs.) - Derm Derm: Warm and dry - Extremities Extremities: No calf tenderness / cord - Neuro Neuro: Alert and oriented X 3 - Psych Psych: Normal mood, Normal affect Results - Vitals Vitals: Vital Signs - 24 hr 08/01/20 08/01/20 08/01/20 16:23 16:52 17:16 Temperature 36.1 C L Heart Rate 113 H 106 H 110 H Respiratory 20 14 20 Rate Blood Pressure 159/81 H 131/66 H 148/70 H O2 Saturation 95 96 96 Oxygen O2 Source Room air - Labs Labs: Laboratory Tests 08/01/20 08/01/20 16:50 16:50 WBC 9.8 RBC 4.13 L Hgb 11.7 L Hct 35.5 L MCV 86.0 MCH 28.3 MCHC 33.0 RDW 12.6 Plt Count 142 MPV 10.5 Neut # (Auto) 7.6 H Lymph # (Auto) 0.9 L [place] # (Auto) 1.3 H Eos # (Auto) 0.0 Baso # (Auto) 0.0 Absolute Nucleated RBC 0.00 Nucleated RBC % 0.0 Sodium 141 Potassium 3.5 Chloride 106 Carbon Dioxide 24 Anion Gap 11.0 BUN 19 Creatinine 0.5 Estimated GFR (MDRD) 124 Glucose 118 H Calcium 9.0 Total Bilirubin 0.7 AST 20 ALT 24 Alkaline Phosphatase 78 Total Protein 6.6 L Albumin 3.3 Globulin 3.3 Albumin/Globulin Ratio 1.0 Lipase 31 - Rads (name of study) CT abdomen pelvis Radiology: Prelim report reviewed, EMP read contemporaneously, See rad report PD MEDICAL DECISION MAKING - ED course Complexity details: reviewed old records, reviewed results, re-evaluated patient, considered differential, d/w patient, d/w mainframe consultant ED course: 65-year-old female presents to the emergency department left lower quadrant abdominal pain. Appears to have diverticulitis. No perforation or abscess. Has been on Augmentin for the past 10 days and still appears to be worsening. Had fevers last night. We will place the patient in observation for IV antibiotics overnight. We will change to Cipro and Flagyl. Discussed the case with Dr. Medeiros, hospitalist who accepts. This document was made in part using voice recognition software. While efforts are made to proofread this document, sound alike and grammatical errors may occur. IMPRESSION: Interval worsening of diverticulitis, again without evidence of perforation or associated abscess. Departure - Departure Disposition: ED Place in Observation Clinical Impression: Diverticulitis, Failure of outpatient treatment, Tachycardia Condition: Stable Discharge Date/Time: 08/01/20 19:10
[2020-08-01] MEDS ORDERED: metroNIDAZOLE 500 MG/100 ML 500 MG/100 ML BAG IV ONE (17:42)
[2020-08-01] MEDS ORDERED: CIPROFLOXACIN 400 MG/200 ML 400 MG/200 ML BAG IV STA (17:42)
[2020-08-01] MEDS ORDERED: SODIUM CHLORIDE FLUSH 0.9% 10 ML SYRINGE IVP PRN (17:53)
[2020-08-01] MEDS ORDERED: MORPHINE 2 MG/ML CARPUJECT IVP PRN (17:53)
[2020-08-01] MEDS ORDERED: ONDANSETRON ODT 4 MG TABLET TL PRN (17:53)
[2020-08-01] MEDS ORDERED: MORPHINE 2 MG/ML CARPUJECT IVP STA (18:54)
[2020-08-01] MEDS: LACTATED RINGERS 1,000 ML IV SCH (19:36)
[2020-08-01 19:54] LABS: C. PNEUMONIAE- RESP PCR PANEL NOT DETECTED
--- NOTE | 2020-08-01 20:53 | HISTORY & PHYSICAL EXAMINATION ---
Chief Complaint - Chief Complaint Chief Complaint: Abdominal Pain History of Present Illness - Admitted From Admitted From:: ED - History Obtained From Records Reviewed: [facility] History obtained from: Patient & Chart Exam Limitations: None - History of Present Illness HPI Comment/Other: This is a 65 y/o F w/ a history of diverticulitis and stage 3 ovarian cancer (s/p ovarian debulking & omentectomy Aug 1990) who presents w/ abdominal pain. She was seen and discharged from this ED with a course of Augmentin on Jul 18. She says that she finished the antibiotic course last Saturday and that she gradually began having abdominal pain and body aches. She says that she had a fever of 101 degrees last night, and decided to come in today after having an episode of dry wretching. Her abdominal pain is located in the LLQ. She describes it as being achy, non-radiating, 4/10; 10/10 at maximal intensity. The pain is exacerbated by movement, no alleviating factor other than rest. Denies constipation, diarrhea, vomiting. Temp of 37.3 C in ED. No white count. CT Abdomen/Pelvis showed sigmoid colonic wall thickening and adjacent inflammatory changes slightly worse when compared to prior study. No evidence of perforation or abscess. No abnormally dilated loop of bowel. Several small but not threshold enlarged left retroperitoneal lymph nodes are likely reactive. 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 Chronic ankle edema.) Derm: reports: None MRSA Hx?: No Other Past Medical History: Injured her lower left leg in 2012. Never saw a provider about it because she didn't have insurance. She says it took 6 months for the swelling to go down. Since then, her left leg tends to swell up after being on her feet for an extended period of time. - Past Surgical History General: reports: Appendectomy Ortho: reports: Other (Left knee arthroscopy, left knee medial unicompartmental replacement, left thumb arthroplasty 05/16, right thumb arthroplasty 06/25. 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 Seen by rheumatology February 2020. Referral made to [facility] chronic pain clinic March 2020. - Family & Social History Family History: Mother: Alive and Well (Sister, 59, thrombocytopenia?), Sister: Alive and Well Family History Comment/Other: Mom w/out h/o of heart attack at less than 65, had OA, HTN, depression, osteoporosis, dementia, endometriosis, had hysterectomy in early 30s, had pacemaker put in last year. Dad without h/o MS less than 55, of lung cancer at 33. Daughter, 30, reynolds sarcoma, endometriosis, hysterectomy. Living arrangement: At home Living Situation: With family (with daughter) - Substance History Use: Uses substance without health or social issues: NONE Abuse: Recurrent use of substance despite neg consequences: NONE Dependence: Experiences withdrawal or developed tolerances: NONE - POLST Patient has POLST: No POLST Status: Full Code Meds/Allgy - Home Medications Home Medications: Ambulatory Orders Medication Instructions Recorded Confirmed Amlodipine Besylate [Norvasc] 5 mg PO DAILY PM 07/18/20 07/18/20 Amox/Clav 875/125 [Augmentin] 1 tab PO Q8H #30 tablet 07/18/20 Aspirin EC [Ecotrin] 650 mg PO TID PRN 07/18/20 07/18/20 Furosemide [Lasix] 10 - 20 mg PO DAILY PRN 07/18/20 07/18/20 Levothyroxine Sodium [Euthyrox] 100 mcg PO DAILY 07/18/20 07/18/20 Losartan [Cozaar] 50 mg PO DAILY 07/18/20 07/18/20 Ondansetron Odt [Zofran] 4 mg TL Q6H PRN #10 tablet 07/18/20 - Allergies Allergies/Adverse Reactions: Allergies Allergy/AdvReac Type Severity Reaction Status Date / Time celecoxib [From Celebrex] Allergy Unknown Verified 08/01/20 16:28 hydroxyzine [From Vistaril] Allergy Unknown Verified 08/01/20 16:28 ibuprofen Allergy Unknown Verified 08/01/20 16:28 lisinopril Allergy Unknown Verified 08/01/20 16:28 wheat Allergy Unknown Verified 08/01/20 16:28 dairy Allergy Unknown Uncoded 08/01/20 16:28 Review of Systems - Constitutional Constitutional: reports: Fatigue, Fever. denies: Chills - Eyes Eyes: denies: Pain, Vision loss - Ears, Nose & Throat Ears, Nose & Throat: reports: Tinnitus (chronic). denies: Ear pain, Hearing loss, Nasal pain, Nasal discharge, Nasal congestion, Sore throat - Cardiovascular Cariovascular: reports: Palpitations (She attriibutes it to being sick the last 2 weeks.). denies: Lightheadedness, Syncope - Respiratory Respiratory: reports: SOB with exertion (She said she got a little short of breath getting up to go to the bathroom but thinks it could be due to deconditioning and being sick.). denies: Cough, Hemoptysis, SOB at rest - Gastrointestinal Gastrointestinal: reports: Abdominal pain (LLQ), Bloody stools (A little bit of blood that she says is normal to see when she has diverticulitis.), Nausea. denies: Constipation, Diarrhea, Change in bowel habits, Black stools, Vomiting - Genitourinary Genitourinary: denies: Dysuria, Hematuria, Incontinence - Musculoskeletal Musculoskeletal: reports: Muscle aches - Integumentary Integumentary: denies: Rash, Pruritis - Neurological Neurological: reports: Headache. denies: General weakness, Focal weakness, Dizziness, Numbness - Psychiatric Psychiatric: reports: Anxiety (When asked she says, "Don't we all have some anxiety & depression.") - Hematologic/Lymphatic Hematologic/Lymphatic: denies: Bruising, Lymphadenopathy Prior Level of Functionality: Able to walk, drive, dress/feed self. Exam - Vital Signs Reviewed Vital Signs: Yes Vital Signs: Vital Signs x48h Temp Pulse Pulse Resp BP BP Pulse Ox 08/01/20 20:14 37.8 C 93 18 151/63 H 95 08/01/20 18:59 37.6 C 105 H 22 156/76 H 97 08/01/20 18:07 37.3 C 113 H 24 160/87 H 96 08/01/20 17:16 110 H 20 148/70 H 96 08/01/20 16:52 106 H 14 131/66 H 96 08/01/20 16:23 36.1 C L 113 H 20 159/81 H 95 - Physical Exam General Appearance: positive: No acute distress, Alert, Other (She is pleasant, comfortable appearing, able to speak in complete sentences, and able to get out of bed to go to the bathroom. 5'4", 95 kg, BMI 35.9.). negative: Anxious, Lethargic Eyes Bilateral: positive: Normal inspection, PERRL, Conjunctivae nml, No scleral icterus ENT: positive: Pharynx nml. negative: Purulent nasal drainage, Pharyngeal erythema Neck: positive: Nml inspection. negative: Lymphadenopathy (R), Lymphadenopathy (L) Respiratory: positive: Chest non-tender, No respiratory distress, Breath sounds nml Cardiovascular: positive: Regular rate & rhythm, No murmur, No gallop. negative: Irregularly irregular, Tachycardia Peripheral Pulses: positive: 2+ Abdomen: positive: Nml bowel sounds, No distention, Tenderness (LLQ). negative: Guarding, Rebound Back: positive: Nml inspection Skin: positive: Color nml, No rash, Warm, Dry. negative: Cyanosis, Diaphoresis, Pallor Extremities: positive: Full ROM, Pedal edema, Other (Legs are edematous, moreso the left leg. Injured her lower left leg in 2012. Never saw a provider about it because she didn't have insurance. She says it took 6 months for the swelling to go down. Since then, her left leg tends to swell up after being on her feet for an extended period of time.) Neurologic/Psychiatric: positive: Oriented x3, CN's nml (2-12), Motor nml, Sensation nml, Mood/affect nml Conclusion/Plan - Problem List (1) Diverticulitis Conclusion/Plan: She was seen in the ED 2 weeks ago and discharged with augmentin. She finished the antiobiotic course last Saturday and her symptoms have gradually worsened since. She is afebrile. No peritineal signs. This is her 3rd case of diverticulitis. CT Abdomen/Pelvis showed sigmoid colonic wall thickening and adjacent inflammatory changes slightly worse when compared to prior study. No evidence of perforation or abscess. No abnormally dilated loop of bowel. Several small but not threshold enlarged left retroperitoneal lymph nodes are likely reactive. Plan: She was started on IV cipro and metronidazole in the ED. A PICC line will be placed tomorrow and she will be switched to IV 1g ertapenem. Pain management with tylenol (px 1-4), oxycodone (px 5-7), morphine (px 8-10) as needed. She will be discharged once improves, and she can continue her course of antibiotics in the outpatient setting. (2) Failure of outpatient treatment Conclusion/Plan: See above (3) Tachycardia Conclusion/Plan: HR in the ED ranged from 105-113, probably secondary to abdominal pain. She doesn't have chest pain or SOB. Plan: Will continue to monitor HR. (4) Hypertension Conclusion/Plan: This is a chronic condition for which she takes amlodipine and losartan. BP in ED ranged fom 131/66 - 160/87. Plan: Continue home regimen. Qualifiers: Hypertension type: essential hypertension Qualified Code(s): I10 - Es sential (primary) hypertension (5) Hypothyroidism Conclusion/Plan: She is on levothyroxine. Plan: Continue home regimen. Qualifiers: Hypothyroidism type: unspecified Qualified Code(s): E03.9 - Hypothyroidism, unspecified (6) Anemia Conclusion/Plan: Possibly secondary to diverticulitis. MCV is normal. No need for transfusion at this time. Plan: Will continue to monitor. Qualifiers: Anemia type: unspecified type Qualified Code(s): D64.9 - Anemia, unspecified - Lab Results Lab results reviewed: Yes Fish Bones: 08/01/20 16:50 08/01/20 16:50 - Diagnostic Imaging Results Diagnostic Imaging Results: positive: Final report reviewed Core Measures - Anticipated LOS I expect patient to be DC'd or transferred within 96 hours.: Yes - DVT/VTE - Prophylaxis VTE/DVT Device ordered at admit?: Yes VTE/DVT Prophylaxis med ordered at admit?: Yes
[2020-08-01] MEDS: ACETAMINOPHEN 325 MG TABLET PO PRN (21:37)
[2020-08-02] MEDS: ACETAMINOPHEN 325 MG TABLET PO PRN ×3 (01:39→12:08)
[2020-08-02] MEDS: metroNIDAZOLE 500 MG/100 ML 500 MG/100 ML BAG IV SCH ×3 (01:41→18:00)
[2020-08-02] MEDS: SODIUM CHLORIDE FLUSH 0.9% 10 ML SYRINGE IVP SCH ×3 (02:19→17:20)
[2020-08-02 05:25] LABS: BASOPHILS % (AUTO) 0.4 %; EOSINOPHILS # (AUTO) 0.1 10^3/uL (0.0-0.7); EOSINOPHILS % (AUTO) 0.9 %; HGB - HEMOGLOBIN 10.3 g/dL (12.0-16.0); LYMPHOCYTES # (AUTO) 1.1 10^3/uL (1.5-3.5); LYMPHOCYTES % (AUTO) 15.2 %; MEAN CORPUSCULAR HEMOGLOBIN 28.6 pg (27.0-31.0); MEAN CORPUSCULAR HGB CONC 32.8 g/dL (32.0-36.0); MEAN CORPUSCULAR VOLUME 87.2 fL (81.0-99.0); MEAN PLATELET VOLUME 10.9 fL (7.9-10.8); MONOCYTES # (AUTO) 1.1 10^3/uL (0.0-1.0); MONOCYTES % (AUTO) 15.3 %; NEUTROPHILS % (AUTO) 67.8 %; PLT - PLATELET COUNT 116 10^3/uL (130-450); RED CELL DISTRIBUTION WIDTH 12.8 % (12.0-15.0); WHITE BLOOD COUNT 7.4 x10^3/uL (4.8-10.8)
[2020-08-02 05:29] LABS: INR 1.6 (0.8-1.2); PT - PROTHROMBIN TIME 17.7 secs (9.9-12.6)
[2020-08-02 05:34] LABS: CALCIUM 8.4 mg/dL (8.5-10.3); CREATININE 0.5 mg/dL (0.4-1.0)
[2020-08-02] MEDS: LACTATED RINGERS 1,000 ML IV SCH ×2 (06:26→22:08)
[2020-08-02] MEDS: CIPROFLOXACIN 400 MG/200 ML 400 MG/200 ML BAG IV SCH ×2 (07:42→20:24)
[2020-08-02] MEDS: POTASSIUM CHLORIDE 20 MEQ TABLET PO SCH ×3 (07:46→16:58)
[2020-08-02] MEDS: ENOXAPARIN 40 MG/0.4 ML SYRINGE SUBQ SCH (09:20)
--- NOTE | 2020-08-02 11:52 | PHARMACY PROGRESS NOTE ---
- Best Possible Medication History Admit Date and Time: 08/01/20 1754 Processed by: Pharmacy Medication History completed: Yes Patient Interview: Completed Secondary Source(s): Pharmacy records, Insurance records (PATIENT INTERVIEWED BY PLANNING SUPERVISOR. PATIENT ABLE TO CONFIRM HOME MEDICATIONS ) As the person ultimately responsible for medication therapy, providers are able to order a medication from an existing home medication list in [facility] via the "Reconcile Routine" prior to Confirmation of that medication by administrative support assoc. Such practice is discouraged except when the physician, in their clinical judgment, deems that a medical need exists for a medication without regard to previous use.
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
--- NOTE | 2020-08-02 12:55 | PROVIDER PROGRESS NOTE ---
Assessment/Plan - Problem List (1) Colitis Assessment/Plan: Her nausea has improved, she has interest in food and her abdominal pain is better. Will advance her to a pured diet. Continue with IV antibiotics. Plan is for PICC line placement todday and transition to outpatient IV antibiotics for 14 days, social work and operational trainer are working on getting this approved. (2) Hypokalemia Assessment/Plan: Replace with riders (3) Headache Assessment/Plan: She thinks she has a tension headache or a muscular headache from retching and throwing up. Pain meds as needed to be ordered and if no better consider Toradol or Flexeril (4) Anemia Assessment/Plan: Hemoglobin was 11.7, today is down to 10.3. Is presumably hemodilution from all the fluid she is getting while NPO. We will check B12, folate levels and iron stores and replace if low. (5) Hypertension Qualifiers: Hypertension type: essential hypertension Qualified Code(s): I10 - Essential (primary) hypertension Assessment/Plan: BP oscar to 170's. Will slowly resume her po BP meds. (6) Hypothyroidism Qualifiers: Hypothyroidism type: unspecified Qualified Code(s): E03.9 - Hypothyroidism, unspecified Assessment/Plan: Will resume her home dose of Synthroid. - Current Meds Current Meds: Current Medications Generic Name Dose Route Start Last Admin Trade Name Freq PRN Reason Stop Dose Admin Acetaminophen 650 mg 08/01/20 17:53 08/02/20 12:08 Acetaminophen 325 Mg Tablet PO 650 mg Q4HR PRN Administration Pain 1 to 4 Enoxaparin Sodium 40 mg 08/02/20 09:00 08/02/20 09:20 Enoxaparin 40 Mg/0.4 Ml Syringe SUBQ 40 mg DAILY MARIA ALEJANDRA Administration Lactated Ringer's 1,000 mls @ 100 mls/hr 08/01/20 18:00 08/02/20 06:26 Lr IV 100 mls/hr .Q10H MARIA ALEJANDRA Administration Ciprofloxacin 400 mg in 200 mls @ 200 mls/hr 08/02/20 08:00 08/02/20 09:22 Cipro 400 Mg/200 Ml IV Infused Q12H MARIA ALEJANDRA Infusion Metronidazole 500 mg in 100 mls @ 100 mls/hr 08/02/20 02:00 08/02/20 10:31 Flagyl 500 Mg/100 Ml IV Infused Q8H MARIA ALEJANDRA Infusion Potassium Chloride 40 meq 08/02/20 08:00 08/02/20 12:05 Potassium Chloride 20 Meq Tablet PO 08/02/20 17:01 40 meq TIDWM MARIA ALEJANDRA Administration Sodium Chloride 10 ml 08/02/20 01:00 08/02/20 09:22 Sodium Chloride Flush 0.9% 10 Ml Syringe IVP Not Given 0100,0900,1700 MARIA ALEJANDRA - Lab Result Fish Bone Diagrams: 08/02/20 05:11 08/02/20 05:11 - Additional Planning My Orders: My Active Orders 08/02/20 Lunch Dysphagia Puree Diet [DIET] 08/02/20 11:16 Dietary [Nutrition Consult] [CONS] Routine 08/02/20 13:00 Levothyroxine [Synthroid] 100 mcg PO DAILY Subjective - Subjective Patient Reports: Feeling Better (Abdominal pain and nausea are better. She describes a headache, starting in neck and up her occiput, after alot of wretching and vomiting last several days and thinks it is muscle spasms.) Objective Vital Signs: Vital Signs - 24 hr 08/01/20 08/01/20 08/01/20 16:23 16:52 17:16 Temperature 36.1 C L Heart Rate 113 H 106 H 110 H Heart Rate [ Brachial] Respiratory 20 14 20 Rate Blood Pressure 159/81 H 131/66 H 148/70 H Blood Pressure [Left Brachial artery] Blood Pressure [Right Brachial artery] O2 Saturation 95 96 96 08/01/20 08/01/20 08/01/20 18:07 18:59 20:14 Temperature 37.3 C 37.6 C 37.8 C Heart Rate 113 H 105 H Heart Rate [ 93 Brachial] Respiratory 24 22 18 Rate Blood Pressure 160/87 H 156/76 H Blood Pressure [Left Brachial artery] Blood Pressure 151/63 H [Right Brachial artery] O2 Saturation 96 97 95 08/02/20 08/02/20 08/02/20 01:00 05:00 07:47 Temperature 37.1 C 36.9 C 36.7 C Heart Rate Heart Rate [ 101 H 90 97 Brachial] Respiratory 16 18 18 Rate Blood Pressure Blood Pressure 142/65 H [Left Brachial artery] Blood Pressure 147/74 H 152/71 H [Right Brachial artery] O2 Saturation 95 96 95 08/02/20 12:01 Temperature 37.1 C Heart Rate Heart Rate [ 73 Brachial] Respiratory 18 Rate Blood Pressure Blood Pressure [Left Brachial artery] Blood Pressure 137/66 H [Right Brachial artery] O2 Saturation 96 Oxygen O2 Source Room air I&O (Last 24 Hrs): Intake and Output Totals x24h 07/31/20 08/01/20 08/02/20 23:59 23:59 23:59 Intake Total 1300 2880.000 Balance 1300 2880.000 General: Alert, Oriented x3 HEENT: EOMI, Mucous membr. moist/pink Neck: Supple, No JVD Neuro: Alert, Non Focal Cardiovascular: Regular rate, No murmurs Respiratory: No respiratory distress, Breath sounds nml Abdomen: Normal bowel sounds, Soft, No tenderness, Other (Obese abdomen, no guarding, rebound or hypertympany.) Extremities: No edema, No tenderness/swelling - Results Results: Laboratory Results WBC 7.4 x10^3/uL (4.8-10.8) 08/02/20 05:11 RBC 3.60 10^6/uL (4.20-5.40) L 08/02/20 05:11 Hgb 10.3 g/dL (12.0-16.0) L 08/02/20 05:11 Hct 31.4 % (37.0-47.0) L 08/02/20 05:11 MCV 87.2 fL (81.0-99.0) 08/02/20 05:11 MCH 28.6 pg (27.0-31.0) 08/02/20 05:11 MCHC 32.8 g/dL (32.0-36.0) 08/02/20 05:11 RDW 12.8 % (12.0-15.0) 08/02/20 05:11 Plt Count 116 10^3/uL (130-450) L 08/02/20 05:11 MPV 10.9 fL (7.9-10.8) H 08/02/20 05:11 Neut # (Auto) 5.0 10^3/uL (1.5-6.6) 08/02/20 05:11 Lymph # (Auto) 1.1 10^3/uL (1.5-3.5) L 08/02/20 05:11 [place] # (Auto) 1.1 10^3/uL (0.0-1.0) H 08/02/20 05:11 Eos # (Auto) 0.1 10^3/uL (0.0-0.7) 08/02/20 05:11 Baso # (Auto) 0.0 10^3/uL (0.0-0.1) 08/02/20 05:11 Absolute Nucleated RBC 0.00 x10^3/uL 08/02/20 05:11 Nucleated RBC % 0.0 /100WBC 08/02/20 05:11 PT 17.7 secs (9.9-12.6) H 08/02/20 05:11 INR 1.6 (0.8-1.2) H 08/02/20 05:11 Sodium 139 mmol/L (135-145) 08/02/20 05:11 Potassium 3.0 mmol/L (3.5-5.0) L 08/02/20 05:11 Chloride 107 mmol/L (101-111) 08/02/20 05:11 Carbon Dioxide 24 mmol/L (21-32) 08/02/20 05:11 Anion Gap 8.0 (6-13) 08/02/20 05:11 BUN 14 mg/dL (6-20) 08/02/20 05:11 Creatinine 0.5 mg/dL (0.4-1.0) 08/02/20 05:11 Estimated GFR (MDRD) 124 (>89) 08/02/20 05:11 Glucose 110 mg/dL (70-100) H 08/02/20 05:11 Calcium 8.4 mg/dL (8.5-10.3) L 08/02/20 05:11 Total Bilirubin 0.7 mg/dL (0.2-1.0) 08/01/20 16:50 AST 20 IU/L (10-42) 08/01/20 16:50 ALT 24 IU/L (10-60) 08/01/20 16:50 Alkaline Phosphatase 78 IU/L (42-121) 08/01/20 16:50 Total Protein 6.6 g/dL (6.7-8.2) L 08/01/20 16:50 Albumin 3.3 g/dL (3.2-5.5) 08/01/20 16:50 Globulin 3.3 g/dL (2.1-4.2) 08/01/20 16:50 Albumin/Globulin Ratio 1.0 (1.0-2.2) 08/01/20 16:50 Lipase 31 U/L (22-51) 08/01/20 16:50 Nasal Adenovirus (PCR) NOT DETECTED 08/01/20 18:55 Nasal B. parapertussis DNA (PCR) NOT DETECTED 08/01/20 18:55 Nasal Coronavir 229E PCR NOT DETECTED 08/01/20 18:55 Nasal Coronavir HKU1 PCR NOT DETECTED 08/01/20 18:55 Nasal Coronavir NL63 PCR NOT DETECTED 08/01/20 18:55 Nasal Coronavir OC43 PCR NOT DETECTED 08/01/20 18:55 Nasal Enterovir/Rhinovir PCR NOT DETECTED 08/01/20 18:55 Nasal Influenza B PCR NOT DETECTED 08/01/20 18:55 Nasal Influenza A PCR NOT DETECTED 08/01/20 18:55 Nasal Parainfluen 1 PCR NOT DETECTED 08/01/20 18:55 Nasal Parainfluen 2 PCR NOT DETECTED 08/01/20 18:55 Nasal Parainfluen 3 PCR NOT DETECTED 08/01/20 18:55 Nasal Parainfluen 4 PCR NOT DETECTED 08/01/20 18:55 Nasal RSV (PCR) NOT DETECTED 08/01/20 18:55 Nasal B.pertussis DNA PCR NOT DETECTED 08/01/20 18:55 Nasal C.pneumoniae (PCR) NOT DETECTED 08/01/20 18:55 [place]aleb Human Metapneumo PCR NOT DETECTED 08/01/20 18:55 Nasal M.pneumoniae (PCR) NOT DETECTED 08/01/20 18:55 Nasal SARS-CoV-2 (PCR) NOT DETECTED 08/01/20 18:55
--- NOTE | 2020-08-02 14:43 | ANESTHESIA PROCEDURE NOTE ---
Anesth Central Line Template - Central Line Central Line Preparation: Consent Obtained, Time out completed, Ultrasound used, Sterile prep and drape Central line location: Right Basilic Central line type: PICC Double Lumen Central line catheter tip site resides: Subclavian vein (midclavicular, unable to advance) Central line aftercare: Secured, Placement confirmed, No pneumothorax, No complications, Pt tolerated well Other Info/Details: R UE prepped/drape after consent. R basilic v accessed with ease using sterile US, wire threaded without difficulty. Cath cut to 38 based on chart, dilator, cath threaded easily until 8cm exposed. Unable to advance. Caps, aspirate and flush easily, will confirm placement with PCXR as tip tracker unable to confirm near cavoatrial junction. Stat lock and tegaderm placed with cath coiled, 8cm exposed. PCXR shows tip in subclavian vein, uncoiled and not kinked. Ok to use as midline catheter for IV abxs.
--- NOTE | 2020-08-02 14:53 | XRAY Report ---
PROCEDURE: Chest for Line Placement INDICATIONS: PICC line placement on right TECHNIQUE: One view of the chest was acquired. COMPARISON: 11/03/2018 FINDINGS: Surgical changes and devices: There is a right upper extremity PICC in place, with the distal tip pro jecting over the expected region of the mid subclavian vein. Lungs and pleura: No pleural effusions or pneumothorax. Lungs are clear. Mediastinum: Mediastinal contours appear normal. Heart size is normal. Bones and chest wall: No suspicious bony lesions. Overlying soft tissues appear unremarkable. IMPRESSION: Tip of the right upper extremity PICC projects over the expected region of the mid-subclavian vein. D epending on the clinical application of this catheter, advancement could be considered. Reviewed by: Sridhar Buck MD on 08/02/2020 2:52 PM PST Approved by: Sridhar Buck MD on 08/02/2020 2:52 PM PST Station ID: [id number]
[2020-08-02] MEDS: oxyCODONE 5 MG TABLET PO PRN (16:36)
[2020-08-02] MEDS: LEVOTHYROXINE 100 MCG TABLET PO SCH (16:36)
[2020-08-03] MEDS: ACETAMINOPHEN 325 MG TABLET PO PRN (00:43)
[2020-08-03] MEDS: SODIUM CHLORIDE FLUSH 0.9% 10 ML SYRINGE IVP SCH ×3 (00:46→16:58)
[2020-08-03] MEDS ORDERED: BENZOCAINE/MENTHOL LOZENGE MM PRN (00:47)
[2020-08-03] MEDS: metroNIDAZOLE 500 MG/100 ML 500 MG/100 ML BAG IV SCH ×2 (02:07→09:34)
[2020-08-03 05:47] LABS: BASOPHILS % (AUTO) 0.4 %; EOSINOPHILS # (AUTO) 0.1 10^3/uL (0.0-0.7); EOSINOPHILS % (AUTO) 1.4 %; HGB - HEMOGLOBIN 10.5 g/dL (12.0-16.0); LYMPHOCYTES # (AUTO) 1.1 10^3/uL (1.5-3.5); LYMPHOCYTES % (AUTO) 19.4 %; MEAN CORPUSCULAR HEMOGLOBIN 28.5 pg (27.0-31.0); MEAN CORPUSCULAR HGB CONC 32.5 g/dL (32.0-36.0); MEAN CORPUSCULAR VOLUME 87.5 fL (81.0-99.0); MEAN PLATELET VOLUME 11.4 fL (7.9-10.8); MONOCYTES # (AUTO) 0.8 10^3/uL (0.0-1.0); MONOCYTES % (AUTO) 14.9 %; NEUTROPHILS # (AUTO) 3.5 10^3/uL (1.5-6.6); NEUTROPHILS % (AUTO) 63.5 %; PLT - PLATELET COUNT 126 10^3/uL (130-450); RED BLOOD COUNT 3.69 10^6/uL (4.20-5.40); RED CELL DISTRIBUTION WIDTH 12.6 % (12.0-15.0); WHITE BLOOD COUNT 5.6 x10^3/uL (4.8-10.8)
[2020-08-03 06:06] LABS: CALCIUM 8.5 mg/dL (8.5-10.3); CREATININE 0.4 mg/dL (0.4-1.0)
[2020-08-03 06:22] LABS: FOLATE 17.86 ng/mL (5.90 - >24.8)
[2020-08-03] MEDS: LEVOTHYROXINE 100 MCG TABLET PO SCH (08:10)
[2020-08-03] MEDS: SACCHAROMYCES BOULARDII 250 MG CAPSULE PO SCH ×2 (08:11→16:57)
[2020-08-03] MEDS: oxyCODONE 5 MG TABLET PO PRN (08:11)
[2020-08-03] MEDS: FERROUS GLUCONATE 324 MG TABLET PO SCH (08:11)
[2020-08-03] MEDS: CIPROFLOXACIN 400 MG/200 ML 400 MG/200 ML BAG IV SCH (08:15)
[2020-08-03] MEDS: LACTATED RINGERS 1,000 ML IV SCH ×2 (08:17→13:00)
[2020-08-03] MEDS: polyethylene glycoL 3350 17 GM PACKET PO SCH (08:19)
[2020-08-03] MEDS: ENOXAPARIN 40 MG/0.4 ML SYRINGE SUBQ SCH (10:58)
[2020-08-03] MEDS: MEROPENEM 1 GM in SODIUM CHLORIDE 0.9% MINIBAG 100 ML IV SCH ×2 (12:55→21:46)
--- NOTE | 2020-08-03 14:05 | CONSULTATION NOTE ---
Referring Provider Name of Referring Provider:: Dr. Kimberly Philip Consult Date: 08/03/20 Chief Complaint - Chief Complaint Chief Complaint: Refractory diverticulitis History of Present Illness - Admitted From Admitted From:: Home - History Obtained From Records Reviewed: EMR History obtained from: Hospitalist & Patient Exam Limitations: NONE - History of Present Illness HPI Comment/Other: 65-year-old female consulted for refractory diverticulitis after having failed oral outpatient therapy. 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 Chronic ankle edema.) Derm: reports: None MRSA Hx?: No Other Past Medical History: Injured her lower left leg in 2012. Never saw a provider about it because she didn't have insurance. She says it took 6 months for the swelling to go down. Since then, her left leg tends to swell up after being on her feet for an extended period of time. - Past Surgical History General: reports: Appendectomy Ortho: reports: Other (Left knee arthroscopy, left knee medial unicompartmental replacement, left thumb arthroplasty 05/16, right thumb arthroplasty 06/25. 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 Seen by rheumatology February 2020. Referral made to chronic pain clinic March 2020. - Family & Social History Family History: Mother: Alive and Well (Sister, 59, thrombocytopenia?), Sister: Alive and Well Family History Comment/Other: Mom w/out h/o of heart attack at less than 65, had OA, HTN, depression, osteoporosis, dementia, endometriosis, had hysterectomy in early 30s, had pacemaker put in last year. Dad without h/o [place] less than 55, of lung cancer at 33. Daughter, 30, reynolds sarcoma, endometriosis, hysterectomy. Living arrangement: At home Living Situation: With family (with daughter) - Substance History Use: Uses substance without health or social issues: NONE Abuse: Recurrent use of substance despite neg consequences: NONE Dependence: Experiences withdrawal or developed tolerances: NONE - POLST Patient has POLST: No POLST Status: Full Code Meds/Allgy - Home Medications Home Medications: Ambulatory Orders Medication Instructions Recorded Confirmed Amlodipine Besylate [Norvasc] 5 mg PO QPM 07/18/20 08/02/20 Furosemide [Lasix] 10 - 20 mg PO DAILY PRN 07/18/20 08/02/20 Levothyroxine Sodium [Euthyrox] 100 mcg PO DAILY 07/18/20 08/02/20 Losartan [Cozaar] 50 mg PO DAILY 07/18/20 08/02/20 Cholecalciferol (Vitamin D3) 50 mcg PO DAILY 08/02/20 08/02/20 [Vitamin D3] Ferrous Gluconate [Fergon] 324 mg PO DAILYWM #30 tablet 08/04/20 Ondansetron Odt [Zofran Odt] 4 mg TL Q6HR PRN #8 tablet 08/04/20 Saccharomyces Boulardii [Florastor] 500 mg PO BIDWM #28 capsule 08/04/20 oxyCODONE [Roxicodone] 5 mg PO Q4HR PRN #8 tablet 08/04/20 - Allergies Allergies/Adverse Reactions: Allergies Allergy/AdvReac Type Severity Reaction Status Date / Time celecoxib [From Celebrex] Allergy Unknown Verified 08/01/20 16:28 hydroxyzine [From Vistaril] Allergy Unknown Verified 08/01/20 16:28 ibuprofen Allergy Unknown Verified 08/01/20 16:28 lactose Allergy Unknown Verified 08/03/20 07:56 lisinopril Allergy Unknown Verified 08/01/20 16:28 wheat Allergy Unknown Verified 08/01/20 16:28 Review of Systems - Constitutional Constitutional: reports: Fatigue, Fever, Malaise - Gastrointestinal Gastrointestinal: reports: Abdominal pain - Other Findings Other Findings: See hospitalist H&P for additional details. Exam - Vital Signs Reviewed Vital Signs: Yes Vital Signs: Vital Signs x48h Temp Pulse Resp BP Pulse Ox 08/03/20 07:26 36.8 C 94 20 134/67 H 97 08/03/20 06:24 36.8 C 88 18 139/73 H 96 - Physical Exam General Appearance: positive: No acute distress, Alert, Mild distress Eyes Bilateral: positive: Normal inspection ENT: positive: ENT inspection nml Neck: positive: Nml inspection Respiratory: positive: Chest non-tender, No respiratory distress. negative: Wheezes, Rales, Rhonchi Cardiovascular: positive: Regular rate & rhythm Abdomen: positive: No distention, Tenderness. negative: Guarding, Rebound Extremities: positive: Non-tender, Full ROM, Nml appearance, No pedal edema Neurologic/Psychiatric: positive: Oriented x3, CN's nml (2-12), Motor nml, Sensation nml, Mood/affect nml Conclusion and Plan - Lab Results Laboratory Results 08/03/20 05:05: Vitamin B12 615, Folate 17.86 08/03/20 05:05: Sodium 141, Potassium 3.5, Chloride 109, Carbon Dioxide 24, Anion Gap 8.0, BUN 10, Creatinine 0.4, Estimated GFR (MDRD) 161, Glucose 105 H, Calcium 8.5, Iron 16 L, TIBC 195 L, % Saturation 8 L, Transferrin 139 L 08/03/20 05:05: WBC 5.6, RBC 3.69 L, Hgb 10.5 L, Hct 32.3 L, MCV 87.5, MCH 28.5, MCHC 32.5, RDW 12.6, Plt Count 126 L, MPV 11.4 H, Neut # (Auto) 3.5, Lymph # (Auto) 1.1 L, [place] # (Auto) 0.8, Eos # (Auto) 0.1, Baso # (Auto) 0.0, Absolute Nucleated RBC 0.00, Nucleated RBC % 0.0 08/02/20 05:11: PT 17.7 H, INR 1.6 H 08/02/20 05:11: Sodium 139, Potassium 3.0 L, Chloride 107, Carbon Dioxide 24, A nion Gap 8.0, BUN 14, Creatinine 0.5, Estimated GFR (MDRD) 124, Glucose 110 H, Calcium 8.4 L 08/02/20 05:11: WBC 7.4, RBC 3.60 L, Hgb 10.3 L, Hct 31.4 L, MCV 87.2, MCH 28.6, MCHC 32.8, RDW 12.8, Plt Count 116 L, MPV 10.9 H, Neut # (Auto) 5.0, Lymph # (Auto) 1.1 L, [place] # (Auto) 1.1 H, Eos # (Auto) 0.1, Baso # (Auto) 0.0, Absolute Nucleated RBC 0.00, Nucleated RBC % 0.0 08/01/20 18:55: Nasal Adenovirus (PCR) NOT DETECTED, Nasal B. parapertussis DNA (PCR) NOT DETECTED, Nasal Coronavir 229E PCR NOT DETECTED, Nasal Coronavir HKU1 PCR NOT DETECTED, Nasal Coronavir NL63 PCR NOT DETECTED, Nasal Coronavir OC43 PCR NOT DETECTED, Nasal Enterovir/Rhinovir PCR NOT DETECTED, Nasal Influenza B PCR NOT DETECTED, Nasal Influenza A PCR NOT DETECTED, Nasal Parainfluen 1 PCR NOT DETECTED, Nasal Parainfluen 2 PCR NOT DETECTED, Nasal Parainfluen 3 PCR NOT DETECTED, Nasal Parainfluen 4 PCR NOT DETECTED, Nasal RSV (PCR) NOT DETECTED, Nasal B.pertussis DNA PCR NOT DETECTED, Nasal C.pneumoniae (PCR) NOT DETECTED, Kaleb Human Metapneumo PCR NOT DETECTED, Nasal M.pneumoniae (PCR) NOT DETECTED, Nasal SARS-CoV-2 (PCR) NOT DETECTED 08/01/20 16:50: Sodium 141, Potassium 3.5, Chloride 106, Carbon Dioxide 24, Anion Gap 11.0, BUN 19, Creatinine 0.5, Estimated GFR (MDRD) 124, Glucose 118 H, Calcium 9.0, Total Bilirubin 0.7, AST 20, ALT 24, Alkaline Phosphatase 78, Total Protein 6.6 L, Albumin 3.3, Globulin 3.3, Albumin/Globulin Ratio 1.0, Lipase 31 08/01/20 16:50: WBC 9.8, RBC 4.13 L, Hgb 11.7 L, Hct 35.5 L, MCV 86.0, MCH 28.3, MCHC 33.0, RDW 12.6, Plt Count 142, MPV 10.5, Neut # (Auto) 7.6 H, Lymph # (Auto) 0.9 L, [place] # (Auto) 1.3 H, Eos # (Auto) 0.0, Baso # (Auto) 0.0, Absolute Nucleated RBC 0.00, Nucleated RBC % 0.0 - Diagnostic Imaging Results Diagnostic Imaging Results: positive: Final report reviewed Diagnostic Imaging Results Comments: CT abdomen pelvis July 18, 2020 impression: 1. No abscess found but there is definitive mild acute diverticulitis involving the junction of the descending colon as it transitions to the sigmoid. A peridiverticular abscess is not associated. Prior hysterectomy. No evidence of free air through the peritoneal space. CT abdomen pelvis August 01, 2020 impression: 1. Interval worsening of diverticulitis, again without evidence of perforation or associated abscess. - Diagnosis Diagnosis: 1. Refractory diverticulitis. 2. Failure of medical management. 3. History of prior hysterectomy. 4. Abdominal pain - Plan Plan: 1. Bowel rest, IV antibiotics, advance to low residue diet when able. 2. PICC line placement with carboplatinum ultimately transition to ertapenem daily given failure of outpatient oral antibiotics. 3. Repeat imaging in 2 weeks prior to discontinuing PICC line and IV antibiotics; this patient is exceedingly high risk for distant developing fistulous communication given the location of the inflammatory changes, the wor sening of her colitis by imaging, and her history of prior hysterectomy. This patient has the opportunity to avoid the need for future resection as long as we cautiously manage her going forward. 4. Follow-up in general surgery clinic. Return to emergency room for any worsening symptoms or worrisome features. 5. Patient may still be candidate for operative intervention however aggressive intravenous antibiotics should mitigate this and avoid the need for Austin's
--- NOTE | 2020-08-03 16:27 | PROVIDER PROGRESS NOTE ---
Assessment/Plan - Problem List (1) N&V (nausea and vomiting) Assessment/Plan: She thinks this happened because her pills were taken on an empty stomach which she normally does not do. She still had gagging which caused a headache following that. Continue antiemetics prn. Continue with this pured today, advance as tolerated in the morning. She is not ready for discharge today. (2) Diverticulitis Assessment/Plan: According to the H&P, this is her third diverticulitis episode. PICC line has been inserted with plan for outpatient antibiotics. This is being arranged by the market research manager Pauly to be done at [facility], and monitored by her PCP. Hopefully this will be all in place and planning a discharge home for the patient tomorrow. Will request an official consult from General Surgery since Dr. Conn did a "curbside consult" at the time of admission several days ago. After discussion with Dr. Conn today, we will change her iv Cipro and iv Flagyl to iv Meropenem to assess for allergic reaction, before she is discharged on IV Ertapenem for 2 weeks. The General Surgeon wants to see her in 1 week as an outpatient in his clinic. Continue Florastor while she is on antibiotics. Continue with a bland diet, low fiber and advance diet as tolerated, which will continue after discharge. She still needs some codeine doses prn for abdominal pain. The PICC line was bleeding and possibly removed (pulled out) therefore Anesthesia service needs to recheck it today, before it can be used. (3) Hypokalemia Assessment/Plan: Related to inadequate intake. We will replace. Follow BM P daily. (4) Headache Assessment/Plan: She describes a headache only after retching or vomiting, suggesting that it is a tension or stress headache and may also be related to dehydration. At home she says that NSAIDs to treat her headaches. We will give IV Toradol as needed. (5) Anemia Qualifiers: Anemia type: iron deficiency Assessment/Plan: She has adequate B12 and folate stores but iron stores are very low. We will begin iron replacement orally. Follow CBC daily. Transfuse if Hgb under 7. (6) Hypertension Qualifiers: Hypertension type: essential hypertension Qualified Code(s): I10 - Essential (primary) hypertension Assessment/Plan: Her amlodipine, losartan and prn Lasix are on hold because of a normal blood pr essure. We will resume them in a staggering fashion when blood pressure is hypertensive. (7) Hypothyroidism Qualifiers: Hypothyroidism type: unspecified Qualified Code(s): E03.9 - Hypothyroidism, unspecified Assessment/Plan: She is on her home Synthroid dose. - Current Meds Current Meds: Current Medications Generic Name Dose Route Start Last Admin Trade Name Freq PRN Reason Stop Dose Admin Acetaminophen 650 mg 08/01/20 17:53 08/03/20 00:43 Acetaminophen 325 Mg Tablet PO 650 mg Q4HR PRN Administration Pain 1 to 4 Ferrous Gluconate 324 mg 08/03/20 08:00 08/03/20 08:11 Ferrous Gluconate 324 Mg Tablet PO 324 mg DAILYWM MARIA ALEJANDRA Administration Meropenem 1 gm/ Sodium 100 mls @ 200 mls/hr 08/03/20 13:00 08/03/20 13:34 Chloride IV Infused Q8H MARIA ALEJANDRA Infusion Lactated Ringer's 1,000 mls @ 60 mls/hr 08/03/20 12:08 08/03/20 13:00 Lr IV Not Given .[id number] MARIA ALEJANDRA Levothyroxine Sodium 100 mcg 08/02/20 13:00 08/03/20 08:10 Levothyroxine 100 Mcg Tablet PO 100 mcg DAILY MARIA ALEJANDRA Administration Ondansetron HCl 4 mg 08/01/20 17:53 08/02/20 17:33 Ondansetron Odt 4 Mg Tablet TL 4 mg Q6HR PRN Administration Nausea / Vomiting Oxycodone HCl 5 mg 08/01/20 17:53 08/03/20 08:11 Oxycodone 5 Mg Tablet PO 5 mg Q4HR PRN Administration Pain 5 to 7 Polyethylene Glycol 17 gm 08/03/20 09:00 08/03/20 08:19 Polyethylene Glycol 3350 17 Gm Packet PO Not Given DAILY MARIA ALEJANDRA Saccharomyces Boulardii 500 mg 08/03/20 08:00 08/03/20 08:11 Saccharomyces Boulardii 250 Mg Capsule PO 500 mg BIDWM MARIA ALEJANDRA Administration Sodium Chloride 10 ml 08/02/20 01:00 08/03/20 13:00 Sodium Chloride Flush 0.9% 10 Ml Syringe IVP Not Given 0100,0900,1700 MARIA ALEJANDRA Throat Lozenges 1 lozenge 08/03/20 00:47 08/03/20 00:52 Benzocaine/Menthol Lozenge MM 1 lozenge Q2HR PRN Administration Throat pain - Lab Result Fish Bone Diagrams: 08/04/20 04:30 08/04/20 04:30 - Additional Planning My Orders: My Active Orders 08/03/20 Consult [General Surgery Consult] [CONS] Routine 08/03/20 00:47 Benzocaine/Menthol [Cepacol] 1 lozenge MM Q2HR PRN 08/03/20 08:00 Ferrous Gluconate [Fergon] 324 mg PO DAILYWM Saccharomyces Boulardii [Florastor] 500 mg PO BIDWM 08/03/20 12:08 Lactated Ringers [Lr] 1,000 ml IV 60 mls/hr 08/03/20 13:00 Meropenem [Merrem] 1 gm Sodium Chloride 0.9% Minibag [Normal Saline 0.9% Minibag] 100 ml IV Q8H 08/03/20 Dinner DIET [Soft (Low Fiber) Diet] [DIET] Subjective - Subjective Patient Reports: Nausea (She threw up all her morning pills and thinks this happened because she took them on an empty stomach but is not sure. She still has gagging and retching which causes her to get a headache.) Objective Vital Signs: Vital Signs - 24 hr 08/02/20 08/03/20 08/03/20 23:24 06:24 07:26 Temperature 37.3 C 36.8 C 36.8 C Heart Rate [ 109 H 88 94 Brachial] Respiratory 18 18 20 Rate Blood Pressure 151/76 H 139/73 H 134/67 H [Left Brachial artery] O2 Saturation 95 96 97 Oxygen O2 Source Room air I&O (Last 24 Hrs): Intake and Output Totals x24h 08/01/20 08/02/20 08/03/20 23:59 23:59 23:59 Intake Total 1300 5020.000 1956.667 Output Total 301 Balance 1300 5020.000 1655.667 General: Alert, Oriented x3 HEENT: Mucous membr. moist/pink Neck: Supple Neuro: Alert, Non Focal Cardiovascular: Regular rate Respiratory: No respiratory distress Abdomen: Soft Extremities: No edema, No tenderness/swelling - Results Results: Laboratory Results WBC 5.6 x10^3/uL (4.8-10.8) 08/03/20 05:05 RBC 3.69 10^6/uL (4.20-5.40) L 08/03/20 05:05 Hgb 10.5 g/dL (12.0-16.0) L 08/03/20 05:05 Hct 32.3 % (37.0-47.0) L 08/03/20 05:05 MCV 87.5 fL (81.0-99.0) 08/03/20 05:05 MCH 28.5 pg (27.0-31.0) 08/03/20 05:05 MCHC 32.5 g/dL (32.0-36.0) 08/03/20 05:05 RDW 12.6 % (12.0-15.0) 08/03/20 05:05 Plt Count 126 10^3/uL (130-450) L 08/03/20 05:05 MPV 11.4 fL (7.9-10.8) H 08/03/20 05:05 Neut # (Auto) 3.5 10^3/uL (1.5-6.6) 08/03/20 05:05 Lymph # (Auto) 1.1 10^3/uL (1.5-3.5) L 08/03/20 05:05 [place] # (Auto) 0.8 10^3/uL (0.0-1.0) 08/03/20 05:05 Eos # (Auto) 0.1 10^3/uL (0.0-0.7) 08/03/20 05:05 Baso # (Auto) 0.0 10^3/uL (0.0-0.1) 08/03/20 05:05 Absolute Nucleated RBC 0.00 x10^3/uL 08/03/20 05:05 Nucleated RBC % 0.0 /100WBC 08/03/20 05:05 PT 17.7 secs (9.9-12.6) H 08/02/20 05:11 INR 1.6 (0.8-1.2) H 08/02/20 05:11 Sodium 141 mmol/L (135-145) 08/03/20 05:05 Potassium 3.5 mmol/L (3.5-5.0) 08/03/20 05:05 Chloride 109 mmol/L (101-111) 08/03/20 05:05 Carbon Dioxide 24 mmol/L (21-32) 08/03/20 05:05 Anion Gap 8.0 (6-13) 08/03/20 05:05 BUN 10 mg/dL (6-20) 08/03/20 05:05 Creatinine 0.4 mg/dL (0.4-1.0) 08/03/20 05:05 Estimated GFR (MDRD) 161 (>89) 08/03/20 05:05 Glucose 105 mg/dL (70-100) H 08/03/20 05:05 Calcium 8.5 mg/dL (8.5-10.3) 08/03/20 05:05 Iron 16 ug/dL (28-170) L 08/03/20 05:05 TIBC 195 ug/dL (250-450) L 08/03/20 05:05 % Saturation 8 % (20-50) L 08/03/20 05:05 Transferrin 139 mg/dL (192-382) L 08/03/20 05:05 Total Bilirubin 0.7 mg/dL (0.2-1.0) 08/01/20 16:50 AST 20 IU/L (10-42) 08/01/20 16:50 ALT 24 IU/L (10-60) 08/01/20 16:50 Alkaline Phosphatase 78 IU/L (42-121) 08/01/20 16:50 Total Protein 6.6 g/dL (6.7-8.2) L 08/01/20 16:50 Albumin 3.3 g/dL (3.2-5.5) 08/01/20 16:50 Globulin 3.3 g/dL (2.1-4.2) 08/01/20 16:50 Albumin/Globulin Ratio 1.0 (1.0-2.2) 08/01/20 16:50 Lipase 31 U/L (22-51) 08/01/20 16:50 Vitamin B12 615 pg/mL (180-914) 08/03/20 05:05 Folate 17.86 ng/mL (5.90 - >24.8) 08/03/20 05:05 Nasal Adenovirus (PCR) NOT DETECTED 08/01/20 18:55 Nasal B. parapertussis DNA (PCR) NOT DETECTED 08/01/20 18:55 Nasal Coronavir 229E PCR NOT DETECTED 08/01/20 18:55 Nasal Coronavir HKU1 PCR NOT DETECTED 08/01/20 18:55 Nasal Coronavir NL63 PCR NOT DETECTED 08/01/20 18:55 Nasal Coronavir OC43 PCR NOT DETECTED 08/01/20 18:55 Nasal Enterovir/Rhinovir PCR NOT DETECTED 08/01/20 18:55 Nasal Influenza B PCR NOT DETECTED 08/01/20 18:55 Nasal Influenza A PCR NOT DETECTED 08/01/20 18:55 Nasal Parainfluen 1 PCR NOT DETECTED 08/01/20 18:55 Nasal Parainfluen 2 PCR NOT DETECTED 08/01/20 18:55 Nasal Parainfluen 3 PCR NOT DETECTED 08/01/20 18:55 Nasal Parainfluen 4 PCR NOT DETECTED 08/01/20 18:55 Nasal RSV (PCR) NOT DETECTED 08/01/20 18:55 Nasal B.pertussis DNA PCR NOT DETECTED 08/01/20 18:55 Nasal C.pneumoniae (PCR) NOT DETECTED 08/01/20 18:55 Kaleb Human Metapneumo PCR NOT DETECTED 08/01/20 18:55 Nasal M.pneumoniae (PCR) NOT DETECTED 08/01/20 18:55 Nasal SARS-CoV-2 (PCR) NOT DETECTED 08/01/20 18:55
[2020-08-04] MEDS: LACTATED RINGERS 1,000 ML IV SCH (02:42)
[2020-08-04] MEDS: MEROPENEM 1 GM in SODIUM CHLORIDE 0.9% MINIBAG 100 ML IV SCH ×2 (04:59→12:43)
[2020-08-04 05:01] LABS: BASOPHILS % (AUTO) 0.5 %; EOSINOPHILS # (AUTO) 0.2 10^3/uL (0.0-0.7); EOSINOPHILS % (AUTO) 2.7 %; HGB - HEMOGLOBIN 11.6 g/dL (12.0-16.0); LYMPHOCYTES # (AUTO) 1.1 10^3/uL (1.5-3.5); LYMPHOCYTES % (AUTO) 17.9 %; MEAN CORPUSCULAR HEMOGLOBIN 28.8 pg (27.0-31.0); MEAN CORPUSCULAR HGB CONC 32.3 g/dL (32.0-36.0); MEAN CORPUSCULAR VOLUME 89.1 fL (81.0-99.0); MEAN PLATELET VOLUME 11.3 fL (7.9-10.8); MONOCYTES # (AUTO) 0.9 10^3/uL (0.0-1.0); MONOCYTES % (AUTO) 15.6 %; NEUTROPHILS # (AUTO) 3.8 10^3/uL (1.5-6.6); NEUTROPHILS % (AUTO) 63.1 %; PLT - PLATELET COUNT 158 10^3/uL (130-450); RED BLOOD COUNT 4.03 10^6/uL (4.20-5.40); RED CELL DISTRIBUTION WIDTH 12.4 % (12.0-15.0)
[2020-08-04 05:05] LABS: CREATININE 0.6 mg/dL (0.4-1.0)
[2020-08-04 08:36] VITALS: BP 168/71
[2020-08-04] MEDS ORDERED: LOSARTAN 50 MG TABLET PO SCH (09:00)
[2020-08-04] MEDS: SACCHAROMYCES BOULARDII 250 MG CAPSULE PO SCH (09:02)
[2020-08-04] MEDS: LEVOTHYROXINE 100 MCG TABLET PO SCH (09:02)
[2020-08-04] MEDS: FERROUS GLUCONATE 324 MG TABLET PO SCH (09:02)
[2020-08-04] MEDS: polyethylene glycoL 3350 17 GM PACKET PO SCH (09:04)
[2020-08-04] MEDS: SODIUM CHLORIDE FLUSH 0.9% 10 ML SYRINGE IVP SCH ×2 (09:05→10:24)
[2020-08-04] MEDS ORDERED: LACTATED RINGERS 1,000 ML IV SCH (09:11)
--- NOTE | 2020-08-04 13:16 | Discharge Plan ---
Discharge Plan Problem Reviewed?: Yes Disposition: Home, Self Care Condition: Fair Prescriptions: oxyCODONE [Roxicodone] 5 mg PO Q4HR PRN #8 tablet PRN Reason: Pain 5 to 7 Ondansetron Odt [Zofran Odt] 4 mg TL Q6HR PRN #8 tablet PRN Reason: Nausea / Vomiting Ferrous Gluconate [Fergon] 324 mg PO DAILYWM #30 tablet Saccharomyces Boulardii [Florastor] 500 mg PO BIDWM #28 capsule Diet: Soft Activity Restrictions: Activity as Tolerated Shower Restrictions: No Driving Restrictions: No Instruction Topics: Diverticulitis Dc Health Concerns: You were admitted for IV hydration, IV antibiotics and management of your diet and pain control for this bout of recurrent diverticulitis. We also found you to have an iron deficiency anemia. You have been started on iron replacement. Please advance your diet very slowly as you can tolerate it, do not take your medicines on an empty stomach as you already know. You have been approved to get daily IV antibiotic infusions at the [facility] clinic and the first appointment is today at 3:30 PM. Resume all your other pre-hospital medications. New prescriptions were electronically sent to your pharmacy (probiotic tablets, iron replacement tablets, pain medication, if needed and Zofran tablets for nausea, if needed). Please see your PCP for hospital follow-up in the next 5 to 10 days. Also the specialist who saw you (Dr. Jigar Conn), would like to see you in 1 week in an office follow-up. Call his office for an appointment at [phone]. Plan of Treatment: As above. Care Goals: Improvement in symptoms and stabilization are the goals. Assessment: Patient understands and is agreeable with the plan. Additional Instructions or Follow Up instructions: If you have new or worsening symptoms, call your PCP or the specialist that saw you (Dr. Jigar Conn) for advice or come to the ER. No Smoking: If you smoke, Please STOP! Call for help. Follow-up with: Kathleen Mosqueda ARNP, TOP PRECIPITATOR OPERATOR-C [Primary Care Provider] -
--- NOTE | 2020-08-04 13:24 | DISCHARGE SUMMARY ---
Discharge Summary Admit Date: 08/01/20 Discharge Date: 08/04/20 Discharging Provider: Kimberly Palacios MD Primary Care Provider: Kathleen Mosqueda NP Code Status: Attempt Resuscitation Condition at Discharge: Fair Discharge Disposition: Home, Self Care - DIAGNOSES Admission Diagnoses: This is a 65 y/o white female w/ a history of diverticulitis and stage 3 ovarian cancer (s/p ovarian debulking & omentumectomy Aug 1990), who presents w/ abdominal pain. She was seen and discharged from this ED with a course of Augmentin on Jul 18. She says that she finished the antibiotic course last Saturday (3 days ago) and that she gradually began having abdominal pain, abdominal bloating and body aches. She reports a fever of 101 degrees last night, and decided to come in today after having an episode of dry heaves. Her abdominal pain is located in the LLQ. She describes it as being achy, non- radiating, 4/10 now, but was 10/10 at maximal intensity. The pain is exacerbated by movement, no alleviating factor other than rest. Denies constipation, diarrhea, vomiting. She has a temp of 37.3 C in ED. No elevated white count. CT Abdomen/Pelvis showed sigmoid colonic wall thickening and adjacent inflammatory changes slightly worse when compared to prior study. No evidence of perforation or abscess. No abnormally dilated loop of bowel. Several small but not threshold enlarged left retroperitoneal lymph nodes are likely reactive. We did discuss the case with general surgery as a curbside consult, not a formal consult. We gave Dr. Conn a general description of the patient's condition. He felt that we could start a PICC line and plan antibiotics using once daily ertapenem. After 48 hours she could be discharged depending on pain, fever, white cell count. Duration of therapy would be depending on an outpatient follow-up CT. She is being admitted on the Hospitalist service. Her code status is Full Code. - HOSPITAL COURSE Hospital Course: (1) Diverticulitis This was her third diverticulitis episode. She was started on iv fluids, bowel rest with clear liquid diet, and iv Cipro and iv Flagyl. We did obtain an official consult from General Surgery since Dr. Conn did a "curbside consult" at the time of admission. After that consult, we changed her iv Cipro and iv Flagyl to iv Meropenem to assess for allergic reaction, before she was discharged on daily IV Ertapenem for 2 weeks. PICC line was inserted and arrangements made for outpatient antibiotics. The General Surgeon wants to see her in 1 week as an outpatient in his clinic. We continued Florastor while she is on antibiotics. A bland, low fiber diet was advised to be advanced as tolerated, and she was discharged with new codeine tablets prn for abdominal pain. (2) N&V (nausea and vomiting) On the final 2 days, she reported N.V and thinks this happened because her morning pills were taken on an empty stomach which she normally does not do. She still had gagging which caused a headache following that. Translingual Zofran was prescribed for use prn, after discharge. (3) Hypokalemia Related to inadequate intake and gastrointestinal losses. It was replaced. (4) Headache She described getting a headache only after wretching or vomiting, suggesting that it is a tension or stress headache and may also be related to dehydration. At home she says that NSAIDs work to treat her headaches. We gave IV Toradol as needed. (5) Anemia, iron deficiency Hgb at admission was 11.7 which decreased to 10.5, partly from hemodilution. She has adequate serum B12 and folate stores, but serum iron stores were very low. She was prescribed iron replacement orally. (6) Hypertension Her home doses of Amlodipine, Losartan and prn Lasix were initially on hold because of a "soft" blood pressures. We planned on resuming them in a staggering fashion when blood pressure was hypertensive. (7) Hypothyroidism She was kept on her home Synthroid dose. - ALLERGIES Allergies/Adverse Reactions: Allergies Allergy/AdvReac Type Severity Reaction Status Date / Time celecoxib [From Celebrex] Allergy Unknown Verified 08/01/20 16:28 hydroxyzine [From Vistaril] Allergy Unknown Verified 08/01/20 16:28 ibuprofen Allergy Unknown Verified 08/01/20 16:28 lactose Allergy Unknown Verified 08/03/20 07:56 lisinopril Allergy Unknown Verified 08/01/20 16:28 wheat Allergy Unknown Verified 08/01/20 16:28 - MEDICATIONS Home Medications: Ambulatory Orders Medication Instructions Recorded Confirmed Amlodipine Besylate [Norvasc] 5 mg PO QPM 07/18/20 08/02/20 Furosemide [Lasix] 10 - 20 mg PO DAILY PRN 07/18/20 08/02/20 Levothyroxine Sodium [Euthyrox] 100 mcg PO DAILY 07/18/20 08/02/20 Losartan [Cozaar] 50 mg PO DAILY 07/18/20 08/02/20 Cholecalciferol (Vitamin D3) 50 mcg PO DAILY 08/02/20 08/02/20 [Vitamin D3] Ferrous Gluconate [Fergon] 324 mg PO DAILYWM #30 tablet 08/04/20 Ondansetron Odt [Zofran Odt] 4 mg TL Q6HR PRN #8 tablet 08/04/20 Saccharomyces Boulardii [Florastor] 500 mg PO BIDWM #28 capsule 08/04/20 oxyCODONE [Roxicodone] 5 mg PO Q4HR PRN #8 tablet 08/04/20 - PHYSICAL EXAM AT DISCHARGE General Appearance: positive: No acute distress, Alert Eyes Bilateral: positive: Normal inspection, EOMI ENT: positive: No signs of dehydration Neck: positive: Nml inspection, No JVD Respiratory: positive: No respiratory distress, Breath sounds nml Cardiovascular: positive: Regular rate & rhythm, No murmur Abdomen: positive: Non-tender, Nml bowel sounds, No distention Skin: positive: Warm, Dry Extremities: positive: Non-tender, No pedal edema Neurologic/Psychiatric: positive: Oriented x3 (Non-focal) - LABS Result Diagrams: 08/04/20 04:30 08/04/20 04:30 - DIAGNOSTIC IMAGING Diagnostic Imaging Results: Final report reviewed - FOLLOW UP Follow Up: See PCP as per routine. Attend [facility] clinic daily for iv antibiotic infusions via the PICC line. See General Surgeon, Dr Conn, in 1 week. - TIME SPENT Time Spent in Discharge (Minutes): 60
== END 2020-08-04 15:10 | disposition home or self-care (01) | DRG 392 ==
LOC: ED 16:16 → MS2 17:53
PROVIDERS: ADMIT Internal Medicine; ATTEND Internal Medicine
PROC: 02HV33Z Insertion of Infusion Device into Superior Vena Cava, Percutaneous Approach (ICD-10-PCS; principal; 2020-08-02)
DX: K57.32 Diverticulitis of large intestine without perforation or abscess without bleeding (principal); G90.513 Complex regional pain syndrome I of upper limb, bilateral; R11.2 Nausea with vomiting, unspecified; E87.6 Hypokalemia; G44.209 Tension-type headache, unspecified, not intractable; D50.9 Iron deficiency anemia, unspecified; I10 Essential (primary) hypertension; E03.9 Hypothyroidism, unspecified; K44.9 Diaphragmatic hernia without obstruction or gangrene; M85.80 Other specified disorders of bone density and structure, unspecified site; M19.90 Unspecified osteoarthritis, unspecified site; Z79.82 Long term (current) use of aspirin; Z85.43 Personal history of malignant neoplasm of ovary
CPT/HCPCS: 0202U; 36415; 71045; 74177; 80048; 80053; 82607; 82746; 83540; 83690; 84466; 85025; 85610; 96360; 99284; 99285; A9270; J1650; J2185; J7120; Q0162; Q9967

== ENCOUNTER 2020-08-12 10:35 | Day surgery (SDC) | payer BC ==
[2020-08-12 11:03] VITALS: BP 139/80
--- NOTE | 2020-08-12 12:39 | XRAY Report ---
PROCEDURE: Chest for Line Placement INDICATIONS: S/P PICC # 3 TECHNIQUE: One view of the chest was acquired. COMPARISON: Earlier studies from the same day and 08/09/2020 FINDINGS: Surgical changes and devices: Left-sided PICC line tip is now projecting in the expected location of SVC.. Lungs and pleura: No pleural effusions or pneumothorax. There is mild pulmonary vascular congestion. No definite focal infiltrate. Mediastinum: Mediastinal contours appear normal. Heart size is enlarged. Bones and chest wall: No suspicious bony lesions. Overlying soft tissues appear unremarkable. IMPRESSION: Left-sided PICC line tip is now in the expected location of SVC. Mild pulmonary vascular congestion. No focal infiltrate or pneumothorax. Reviewed by: Frantz Lora MD on 08/12/2020 11:38 AM [facility] Approved by: Frantz Lora MD on 08/12/2020 11:38 AM [facility] Station ID: [id number]
--- NOTE | 2020-08-12 12:41 | XRAY Report ---
PROCEDURE: Chest for Line Placement INDICATIONS: S/P PICC PLACEMENT TECHNIQUE: One view of the chest was acquired. COMPARISON: Earlier study from the same day and 08/09/2020 FINDINGS: Surgical changes and devices: Left-sided PICC line tip is now projecting in the left subclavian vein just to the left of midline.. Lungs and pleura: No pleural effusions or pneumothorax. Lungs are clear. Mediastinum: Mediastinal contours appear normal. Heart size is enlarged. Bones and chest wall: No suspicious bony lesions. Overlying soft tissues appear unremarkable. IMPRESSION: Left-sided PICC line tip is projecting in the region of left subclavian vein just to the left of midl ine. Reviewed by: Frantz Lora MD on 08/12/2020 11:39 AM [facility] Approved by: Frantz Lora MD on 08/12/2020 11:39 AM [facility] Station ID: [id number]
--- NOTE | 2020-08-12 12:43 | XRAY Report ---
PROCEDURE: Chest for Line Placement INDICATIONS: line placement TECHNIQUE: One view of the chest was acquired. COMPARISON: 08/09/2020 FINDINGS: Surgical changes and devices: Left-sided PICC line tip is seen projecting in the expected location of right brachiocephalic vein and is oriented superiorly towards right jugular vein. Lungs and pleura: No pleural effusions or pneumothorax. Lungs are clear. Mediastinum: Mediastinal contours appear normal. Heart size is enlarged. Bones and chest wall: No suspicious bony lesions. Overlying soft tissues appear unremarkable. IMPRESSION: Left-sided PICC line tip is seen projecting in the region of right internal jugular vein/brachiocepha lic vein and is oriented superiorly. No focal infiltrate or pneumothorax. Reviewed by: Frantz Lora MD on 08/12/2020 11:41 AM [facility] Approved by: Frantz Lora MD on 08/12/2020 11:41 AM [facility] Station ID: [id number]
--- NOTE | 2020-08-12 13:51 | ANESTHESIA PROCEDURE NOTE ---
Anesth Central Line Template - Central Line Central Line Preparation: Consent Obtained, Time out completed, Ultrasound used, Sterile prep and drape Central line location: Left Basilic Central line type: PICC Single Lumen Central line catheter tip site resides: Superior vena cava (SVC) Central line aftercare: Secured (statlock), Placement confirmed (by CXR), No complications, Bundle checklist complete, Pt tolerated well, Other (trimmed at 43, 1 cm exposed at skin.)
== END 2020-08-12 10:36 | disposition home or self-care (01) ==
LOC: SDS 10:35
PROVIDERS: ATTEND Nurse Anesthetist, Certified Registered
DX: K57.32 Diverticulitis of large intestine without perforation or abscess without bleeding (principal)
CPT/HCPCS: 36569; 71045; C1751

== ENCOUNTER 2020-08-12 14:57 | Emergency (ER) | payer BC ==
[2020-08-12] MEDS ORDERED: diltiaZEM INJ 5 MG/ML VIAL IVP STA ×2 (15:13→15:44)
--- NOTE | 2020-08-12 15:18 | ED Physician Documentation ---
PD HPI DYSPNEA - Stated complaint Stated Complaint: FAST HEART RATE/FLUTTERING - History obtained from History obtained from: Patient - History of Present Illness Timing - onset: How many months ago (6) Timing - onset during: Light activity Timing - duration: Months (6) Timing - details: Gradual onset, Still present, Waxing and waning Improved by: Rest Worsened by: Exertion Associated symptoms: Cough (intermittant). No: Fever Similar symptoms before: Has not had sx before Recently seen: Admitted - Additional information Additional information: 65-year-old female with history of hypertension hypothyroidism anemia and diverticulitis has recently been admitted into the hospital with diverticulitis failing outpatient management and she has had a PICC line placed. She is on IV antibiotics at home. Today when they reinserted her PICC line they noted she had a rapid irregular heart and asked the patient to come to the emergency department. The patient relates a 3 month history of exertional dyspnea. Review of Systems Constitutional: denies: Fever Eyes: denies: Decreased vision Ears: denies: Ear pain Nose: denies: Congestion Throat: denies: Sore throat Cardiac: reports: Palpitations. denies: Chest pain / pressure, Pedal edema, Calf pain Respiratory: reports: Dyspnea. denies: Cough GI: reports: Abdominal Pain. 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 Chronic ankle edema.) Derm: None - Past Surgical History Past Surgical History: Yes General: Appendectomy Ortho: Other (Left knee arthroscopy, left knee medial unicompartmental replacement, left thumb arthroplasty 05/16, right thumb arthroplasty 06/25. ) /ACID CONCENTRATOR: section, Hysterectomy, Oophrectomy, Breast reduction (2008) Cardiovascular: Other (Right thorascopic & right thoracotomy for excision of bronchogenic cyst & intercostal pedicle flap closure of bronchi March 16, 2010.) - Present Medications Home Medications: Ambulatory Orders Medication Instructions Recorded Confirmed Amlodipine Besylate [Norvasc] 5 mg PO QPM 07/18/20 08/02/20 Furosemide [Lasix] 10 - 20 mg PO DAILY PRN 07/18/20 08/02/20 Levothyroxine Sodium [Euthyrox] 100 mcg PO DAILY 07/18/20 08/02/20 Losartan [Cozaar] 50 mg PO DAILY 07/18/20 08/02/20 Cholecalciferol (Vitamin D3) 50 mcg PO DAILY 08/02/20 08/02/20 [Vitamin D3] Ferrous Gluconate [Fergon] 324 mg PO DAILYWM #30 tablet 08/04/20 Ondansetron Odt [Zofran Odt] 4 mg TL Q6HR PRN #8 tablet 08/04/20 Saccharomyces Boulardii [Florastor] 500 mg PO BIDWM #28 capsule 08/04/20 oxyCODONE [Roxicodone] 5 mg PO Q4HR PRN #8 tablet 08/04/20 Metoprolol Tartrate [Lopressor] 25 mg PO BID #30 tab 08/12/20 - Allergies Allergies/Adverse Reactions: Allergies Allergy/AdvReac Type Severity Reaction Status Date / Time celecoxib [From Celebrex] Allergy Unknown Verified 08/01/20 16:28 hydroxyzine [From Vistaril] Allergy Unknown Verified 08/01/20 16:28 ibuprofen Allergy Unknown Verified 08/01/20 16:28 lactose Allergy Unknown Verified 08/03/20 07:56 lisinopril Allergy Unknown Verified 08/01/20 16:28 wheat Allergy Unknown Verified 08/01/20 16:28 - Social History Does the pt smoke?: No Smoking Status: Never smoker Does the pt drink ETOH?: No Does the pt have substance abuse?: No - Immunizations Immunizations are current?: Yes - POLST Patient has POLST: No POLST Status: Full Code PD ED PE NORMAL - Vitals Vital signs reviewed: Yes (Tachycardic and hypertensive) - General General: Alert and oriented X 3, Well developed/nourished, Other (Anxious appearing) - HEENT HEENT: Atraumatic, PERRL, EOMI - Neck Neck: Supple, no meningeal sign, No bony TTP - Cardiac Cardiac: No murmur, Other (irregularly irregular rate and rhythm which is rapid) - Respiratory Respiratory: No respiratory distress, Clear bilaterally - Abdomen Abdomen: Normal bowel sounds, Soft, Non tender, Non distended, No organomegaly - Back Back: No CVA TTP, No spinal TTP - Derm Derm: Normal color, Warm and dry, No rash - Extremities Extremities: No deformity, No edema - Neuro Neuro: Alert and oriented X 3, 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, No motor deficit, No sensory deficit, Normal speech Eye Opening: Spontaneous Motor: Obeys Commands Verbal: Oriented GCS Score: 15 - Psych Psych: Normal mood, Normal affect Results - Vitals Vitals: Vital Signs - 24 hr 08/12/20 08/12/20 08/12/20 15:13 15:39 15:43 Temperature 36.9 C Heart Rate 150 H 95 117 H Respiratory 20 21 16 Rate Blood Pressure 156/116 H 148/89 H 135/82 H O2 Saturation 97 96 95 08/12/20 08/12/20 08/12/20 15:46 15:51 16:16 Temperature Heart Rate 117 H 80 82 Respiratory 14 18 18 Rate Blood Pressure 142/88 H 121/71 127/70 O2 Saturation 96 95 93 08/12/20 16:46 Temperature Heart Rate 90 Respiratory 26 H Rate Blood Pressure 136/73 H O2 Saturation 95 Oxygen O2 Source Room air - EKG (time done) 1505 Rate: Rate (enter#) (148) Rhythm: Atrial fibrillation Intervals: Prolonged QT (borderline) QRS: Low voltage Ischemia: ST depression (consistent with rate related strain pattern) Compare to prior EKG: Old EKG unavailable Computer interpretation: Agree with computer - Labs Labs: Laboratory Tests 08/12/20 08/12/20 08/12/20 15:20 15:20 15:20 WBC 6.1 RBC 4.15 L Hgb 11.8 L Hct 36.1 L MCV 87.0 MCH 28.4 MCHC 32.7 RDW 12.5 Plt Count 262 MPV 10.9 H Neut # (Auto) 4.2 Lymph # (Auto) 1.0 L [place] # (Auto) 0.8 Eos # (Auto) 0.1 Baso # (Auto) 0.0 Absolute Nucleated RBC 0.00 Nucleated RBC % 0.0 PT 15.0 H INR 1.4 H Sodium 138 Potassium 3.3 L Chloride 100 L Carbon Dioxide 25 Anion Gap 13.0 BUN 14 Creatinine 0.6 Estimated GFR (MDRD) 101 Glucose 137 H Calcium 9.0 Total Bilirubin 0.7 AST 35 ALT 41 Alkaline Phosphatase 75 Troponin I High Sens B-Natriuretic Peptide Total Protein 6.7 Albumin 3.3 Globulin 3.4 Albumin/Globulin Ratio 1.0 Lipase 33 TSH Free T4 Thyroxine (T4) 08/12/20 08/12/20 08/12/20 15:20 15:20 15:20 WBC RBC Hgb Hct MCV MCH MCHC RDW Plt Count MPV Neut # (Auto) Lymph # (Auto) [place] # (Auto) Eos # (Auto) Baso # (Auto) Absolute Nucleated RBC Nucleated RBC % PT INR Sodium Potassium Chloride Carbon Dioxide Anion Gap BUN Creatinine Estimated GFR (MDRD) Glucose Calcium Total Bilirubin AST ALT Alkaline Phosphatase Troponin I High Sens 4.1 B-Natriuretic Peptide 219 H Total Protein Albumin Globulin Albumin/Globulin Ratio Lipase TSH < 0.08 L Free T4 Thyroxine (T4) 08/12/20 08/12/20 15:20 15:20 WBC RBC Hgb Hct MCV MCH MCHC RDW Plt Count MPV Neut # (Auto) Lymph # (Auto) [place] # (Auto) Eos # (Auto) Baso # (Auto) Absolute Nucleated RBC Nucleated RBC % PT INR Sodium Potassium Chloride Carbon Dioxide Anion Gap BUN Creatinine Estimated GFR (MDRD) Glucose Calcium Total Bilirubin AST ALT Alkaline Phosphatase Troponin I High Sens B-Natriuretic Peptide Total Protein Albumin Globulin Albumin/Globulin Ratio Lipase TSH Free T4 4.05 H Thyroxine (T4) 21.05 H* - Rads (name of study) chest Radiology: Prelim report reviewed (Impression: Left PICC line with the tip projecting into the upper SVC.), EMP read indepedently, See rad report Procedures - IVC sono (time) 1525 Bedside IVC sono: IVC measures (cm) (1.69), Euvolemia PD MEDICAL DECISION MAKING - ED course Complexity details: reviewed old records, reviewed results, re-evaluated terry stinson, considered differential, d/w patient ED course: 65-year-old female with a recent hospitalization for diverticulitis presents to the emergency department today with a rapid irregular heart rate and a history of dyspnea over the past month. She is found to be in atrial fibrillation with a rapid ventricular response with a heart rate in the 140-150 range. She is ad ministered diltiazem 20 mg intravenously as well as 2 g of magnesium sulfate. She has improvement in her heart rate she is given a second dose of diltiazem 25 mg this time and she is given potassium as well. Her Trop is negative BNP is minimally elevated her chest is clear and she is not in failure with a collapsing IVC. She has had symptoms for months and I suspect she has afib either intermittently or continuous. Today we have opted for rate control and her TSH is low so I will have her stop that and we will place her on a beta robert. Departure - Departure Disposition: Home, Self Care Clinical Impression: Atrial fibrillation with RVR, Hypokalemia, Hyperthyroidism Instructions: ED Afib Follow-Up: Kathleen Mosqueda ARNP, [employer] [Primary Care Provider] - Prescriptions: Metoprolol Tartrate [Lopressor] 25 mg PO BID #30 tab Comments: Today it appears you are in atrial fibrillation and your rate is too fast. We have slowed the rate and this will help. We found that your thyroid level is too high and this may be contributing. We will need to have you stop the synthroid and start a betablocker as well as aspirin 81 mg per day. I have prescribed metoprolol to take twice per day. You will need a follow up with your primary care doctor for a referral to the author and to continue your medications and recheck your thyroid.
[2020-08-12] MEDS ORDERED: MAGNESIUM SULFATE 2 GRAM 2 GM/50 ML BAG IV ONE (15:20)
[2020-08-12] MEDS ORDERED: diltiaZEM INJ 5 MG/ML VIAL ONE (15:27)
[2020-08-12 15:36] LABS: BASOPHILS % (AUTO) 0.3 %; EOSINOPHILS # (AUTO) 0.1 10^3/uL (0.0-0.7); EOSINOPHILS % (AUTO) 1.3 %; HGB - HEMOGLOBIN 11.8 g/dL (12.0-16.0); LYMPHOCYTES % (AUTO) 16.8 %; MEAN CORPUSCULAR HEMOGLOBIN 28.4 pg (27.0-31.0); MEAN CORPUSCULAR HGB CONC 32.7 g/dL (32.0-36.0); MEAN PLATELET VOLUME 10.9 fL (7.9-10.8); MONOCYTES # (AUTO) 0.8 10^3/uL (0.0-1.0); MONOCYTES % (AUTO) 12.5 %; NEUTROPHILS # (AUTO) 4.2 10^3/uL (1.5-6.6); NEUTROPHILS % (AUTO) 68.9 %; PLT - PLATELET COUNT 262 10^3/uL (130-450); RED BLOOD COUNT 4.15 10^6/uL (4.20-5.40); RED CELL DISTRIBUTION WIDTH 12.5 % (12.0-15.0); WHITE BLOOD COUNT 6.1 x10^3/uL (4.8-10.8)
[2020-08-12 15:43] LABS: INR 1.4 (0.8-1.2)
[2020-08-12 15:45] LABS: ALBUMIN 3.3 g/dL (3.2-5.5); BILIRUBIN,TOTAL 0.7 mg/dL (0.2-1.0); CREATININE 0.6 mg/dL (0.4-1.0); TOTAL PROTEIN 6.7 g/dL (6.7-8.2)
--- NOTE | 2020-08-12 16:02 | XRAY Report ---
PROCEDURE: Chest 1 View X-Ray INDICATIONS: chest pain TECHNIQUE: One view of the chest was acquired. COMPARISON: 08/12/2020 FINDINGS: Surgical changes and devices: Left PICC line is seen with the tip projecting in the upper SVC. Lungs and pleura: No pleural effusions or pneumothorax. Lungs are clear. Mediastinum: Mediastinal contours appear normal. Heart size is normal. Bones and chest wall: No suspicious bony lesions. Overlying soft tissues appear unremarkable. IMPRESSION: Left PICC line with the tip projecting in the upper SVC. Reviewed by: Oleg Mccormack MD on 08/12/2020 4:01 PM PST Approved by: Oleg Mccormack MD on 08/12/2020 4:01 PM PST Station ID: [id number]
[2020-08-12] MEDS ORDERED: POTASSIUM CHLORIDE 20 MEQ TABLET PO STA (16:08)
[2020-08-12] MEDS ORDERED: POTASSIUM CHLOR 10 MEQ/100 ML 10 MEQ/100 ML BAG IV ONE (16:08)
[2020-08-12] MEDS ORDERED: METOPROLOL TARTRATE 50 MG TABLET PO STA (17:23)
[2020-08-12 17:35] VITALS: BP 139/67
[2020-08-12 18:12] LABS: BILIRUBIN,URINE NEGATIVE (NEGATIVE); GLUCOSE, URINE (UA) NEGATIVE (NEGATIVE); KETONES,URINE (UA) NEGATIVE (NEGATIVE); LEUKOCYTE ESTERASE, URINE NEGATIVE (NEGATIVE); NITRITE,URINE NEGATIVE (NEGATIVE); OCCULT BLOOD,URINE NEGATIVE (NEGATIVE); PROTEIN,URINE NEGATIVE (NEGATIVE); UROBILINOGEN,URINE 0.2 (NORMAL) E.U./dL (NORMAL)
[2020-08-12 18:13] LABS: CLARITY,URINE CLEAR (CLEAR)
== END 2020-08-12 17:58 | disposition home or self-care (01) ==
LOC: ED 14:57
DX: I48.91 Unspecified atrial fibrillation (principal); E87.6 Hypokalemia; E05.90 Thyrotoxicosis, unspecified without thyrotoxic crisis or storm; I10 Essential (primary) hypertension; D64.9 Anemia, unspecified; Z87.19 Personal history of other diseases of the digestive system
CPT/HCPCS: 36415; 71045; 80053; 81003; 83690; 83880; 84436; 84439; 84443; 84484; 85025; 85610; 93005; 96365; 96366; 96368; 96375; 99284; A9270; 81001; 87086

== ENCOUNTER 2020-09-02 11:53 | Outpatient (CLI) | payer BC ==
[2020-09-02] MEDS ORDERED: IOVERSOL 320 100 ML VIAL IVP ONE ×2 (12:19→13:21)
[2020-09-02] MEDS ORDERED: IOPAMIDOL-300 50 ML VIAL ONE (12:19)
[2020-09-02] MEDS ORDERED: IOPAMIDOL-300 50 ML VIAL PO ONE (13:22)
--- NOTE | 2020-09-02 14:09 | CT Report ---
PROCEDURE: CHEST WO INDICATIONS: DIVERTICULITIS, REFLUX, HISTORY OF OVARIAN CA TECHNIQUE: Noncontrast 5 mm thick sections acquired from the pulmonary apices to the posterior costophrenic angl es. 7 mm thick coronal and sagittal MIP reformats were then acquired. For radiation dose reduction, the following was used: automated exposure control, adjustment of mA and/or kV according to patient size. COMPARISON: None. FINDINGS: Image quality: Excellent. Lungs and pleura: No acute air space opacities. No pleural effusions or pneumothorax. Central and peripheral airways are patent and normal in caliber. Mediastinum: Left upper extremity PICC terminates in the midportion of the SVC. Heart size is normal. No pericardial effusion. No mediastinal lymphadenopathy by CT size criteria. There are a few calci fied mediastinal lymph nodes indicating prior granulomatous exposure. Thoracic aorta and central pulm onary arteries are normal in size. Bones and chest wall: No suspicious bony lesions. No vertebral body compression fractures. No axil vargas or supraclavicular adenopathy by size criteria. The thyroid is normal in size. Abdomen: Small hiatal hernia. No acute finding in the included unenhanced upper abdomen. IMPRESSION: Moderate size hiatal hernia. Reviewed by: Sridhar Buck MD on 09/02/2020 2:07 PM PST Approved by: Sridhar Buck MD on 09/02/2020 2:07 PM PST Station ID: [id number]
--- NOTE | 2020-09-02 15:20 | CT Report ---
PROCEDURE: Abdomen/Pelvis W INDICATIONS: DIVERTICULITIS, REFLUX, HISTORY OF OVARIAN CA CONTRAST: IV CONTRAST: Optiray 320 ml: 100 PO CONTRAST: Isovue 300 ml50 TECHNIQUE: After the administration of 100 contrast, 5 mm thick sections acquired from the diaphragms to the sym physis. 5 mm thick coronal and sagittal reformats were acquired. For radiation dose reduction, the following was used: automated exposure control, adjustment of mA and/or kV according to patient size . COMPARISON: None. FINDINGS: Image quality: Excellent. ABDOMEN: Lung bases: Lung bases are clear. Heart size is normal. Solid organs: Liver and spleen are normal in size and enhancement. Gallbladder is normal Biliary s ystem is non dilated. Pancreas enhances normally. No adrenal nodules. Kidneys demonstrate normal s ize and enhancement, without hydronephrosis. Peritoneum and bowel: Bowel loops demonstrate normal wall thickness and caliber. No free fluid or a ir. Diverticulosis without evidence of diverticulitis. There is a small hiatal hernia. Nodes and vessels: No retroperitoneal or mesenteric adenopathy by size criteria. Aorta and inferior vena cava are normal in size. Miscellaneous: No ventral hernias. PELVIS: Genitourinary: Bladder wall thickness is normal. Status post hysterectomy and salpingo-oophorectomy . Miscellaneous: No inguinal hernias or adenopathy. Bones: No suspicious bony lesions. No vertebral body compression fractures. IMPRESSION: 1. Status post hysterectomy and salpingo-oophorectomy for ovarian cancer. No evidence of metastatic d isease to the abdomen or pelvis. 2. No acute abnormality. Reviewed by: Joseph Steiner on 09/02/2020 3:18 PM PST Approved by: Joseph Steiner on 09/02/2020 3:18 PM PST Station ID: [id number]
== END 2020-09-02 11:54 | disposition home or self-care (01) ==
LOC: DI 11:53
PROVIDERS: ATTEND Surgery
DX: K57.32 Diverticulitis of large intestine without perforation or abscess without bleeding (principal); K21.00 Gastro-esophageal reflux disease with esophagitis, without bleeding; C56.9 Malignant neoplasm of unspecified ovary; K44.9 Diaphragmatic hernia without obstruction or gangrene
CPT/HCPCS: 71250; 74177; Q9967

== ENCOUNTER 2020-09-08 09:50 | Outpatient (CLI) | payer BC ==
[2020-09-08 10:04] LABS: BASOPHILS # (AUTO) 0.1 10^3/uL (0.0-0.1); EOSINOPHILS # (AUTO) 0.4 10^3/uL (0.0-0.7); EOSINOPHILS % (AUTO) 4.9 %; HCT - HEMATOCRIT 43.3 % (37.0-47.0); HGB - HEMOGLOBIN 14.3 g/dL (12.0-16.0); LYMPHOCYTES # (AUTO) 1.7 10^3/uL (1.5-3.5); LYMPHOCYTES % (AUTO) 23.3 %; MEAN CORPUSCULAR HEMOGLOBIN 28.3 pg (27.0-31.0); MEAN CORPUSCULAR VOLUME 85.6 fL (81.0-99.0); MEAN PLATELET VOLUME 10.7 fL (7.9-10.8); MONOCYTES # (AUTO) 0.6 10^3/uL (0.0-1.0); MONOCYTES % (AUTO) 7.9 %; NEUTROPHILS # (AUTO) 4.5 10^3/uL (1.5-6.6); NEUTROPHILS % (AUTO) 62.6 %; PLT - PLATELET COUNT 214 10^3/uL (130-450); RED BLOOD COUNT 5.06 10^6/uL (4.20-5.40); RED CELL DISTRIBUTION WIDTH 14.2 % (12.0-15.0); WHITE BLOOD COUNT 7.2 x10^3/uL (4.8-10.8)
[2020-09-08 10:23] LABS: ALBUMIN 4.1 g/dL (3.2-5.5); ALBUMIN/GLOBULIN RATIO 1.2 (1.0-2.2); BILIRUBIN,TOTAL 0.6 mg/dL (0.2-1.0); CREATININE 0.9 mg/dL (0.4-1.0); POTASSIUM 3.8 mmol/L (3.5-5.0); TOTAL PROTEIN 7.4 g/dL (6.7-8.2)
[2020-09-08 10:34] LABS: THYROID STIMULATING HORMONE 48.83 uIU/mL (0.34-5.60)
[2020-09-08 10:36] LABS: FREE T3 2.56 pg/mL (2.5-3.9)
[2020-09-08 10:37] LABS: FREE T4 (FREE THYROXINE) 0.35 ng/dL (0.58-1.64)
[2020-09-08 10:41] LABS: FERRITIN 74.8 ng/mL (11.0-306.8)
== END 2020-09-08 09:51 | disposition home or self-care (01) ==
LOC: LAB 09:50
PROVIDERS: ATTEND Nurse Practitioner
DX: I48.91 Unspecified atrial fibrillation (principal); D64.9 Anemia, unspecified; K57.92 Diverticulitis of intestine, part unspecified, without perforation or abscess without bleeding
CPT/HCPCS: 36415; 80053; 82728; 83540; 84439; 84443; 84466; 84481; 85025

== ENCOUNTER 2020-12-09 14:22 | Outpatient (CLI) | payer BC ==
[2020-12-09 14:46] LABS: BASOPHILS % (AUTO) 0.6 %; EOSINOPHILS # (AUTO) 0.1 10^3/uL (0.0-0.7); EOSINOPHILS % (AUTO) 1.9 %; HGB - HEMOGLOBIN 14.3 g/dL (12.0-16.0); LYMPHOCYTES # (AUTO) 1.5 10^3/uL (1.5-3.5); LYMPHOCYTES % (AUTO) 21.9 %; MEAN CORPUSCULAR VOLUME 88.2 fL (81.0-99.0); MEAN PLATELET VOLUME 10.4 fL (7.9-10.8); MONOCYTES # (AUTO) 0.7 10^3/uL (0.0-1.0); MONOCYTES % (AUTO) 10.3 %; NEUTROPHILS # (AUTO) 4.6 10^3/uL (1.5-6.6); PLT - PLATELET COUNT 199 10^3/uL (130-450); RED BLOOD COUNT 4.76 10^6/uL (4.20-5.40); RED CELL DISTRIBUTION WIDTH 13.2 % (12.0-15.0)
[2020-12-09 15:04] LABS: BUN - BLOOD UREA NITROGEN 17 mg/dL (6-20); CALCIUM 9.5 mg/dL (8.5-10.3); CARBON DIOXIDE - CO2 27 mmol/L (21-32); CHLORIDE 99 mmol/L (101-111); CHOL/HDL RATIO 3.5 (<4.4); CHOLESTEROL 244 mg/dL; CREATININE 0.7 mg/dL (0.4-1.0); GFR - MDRD 84 (>89); GLUCOSE 106 mg/dL (70-100); HDL CHOLESTEROL 70 mg/dL; LDL CHOLESTEROL,CALCULATED 154 mg/dL; LDL/HDL RATIO 2.2 (<4.4); POTASSIUM 3.7 mmol/L (3.5-5.0); SODIUM 139 mmol/L (135-145); TRIGLYCERIDES 100 mg/dL; VLDL CHOLESTEROL 20 mg/dL
== END 2020-12-09 14:23 | disposition home or self-care (01) ==
LOC: LAB 14:22
PROVIDERS: ATTEND Internal Medicine Cardiovascular Disease
DX: I10 Essential (primary) hypertension (principal)
CPT/HCPCS: 36415; 80048; 80061; 83721; 85025

== ENCOUNTER 2020-12-19 07:00 | Outpatient (CLI) | payer BC ==
[2020-12-19 12:24] LABS: BASOPHILS % (AUTO) 0.5 %; EOSINOPHILS # (AUTO) 0.1 10^3/uL (0.0-0.7); EOSINOPHILS % (AUTO) 1.7 %; HCT - HEMATOCRIT 39.5 % (37.0-47.0); HGB - HEMOGLOBIN 13.4 g/dL (12.0-16.0); LYMPHOCYTES # (AUTO) 1.3 10^3/uL (1.5-3.5); MEAN CORPUSCULAR HEMOGLOBIN 30.4 pg (27.0-31.0); MEAN CORPUSCULAR HGB CONC 33.9 g/dL (32.0-36.0); MEAN CORPUSCULAR VOLUME 89.6 fL (81.0-99.0); MEAN PLATELET VOLUME 10.3 fL (7.9-10.8); MONOCYTES # (AUTO) 0.6 10^3/uL (0.0-1.0); MONOCYTES % (AUTO) 10.6 %; NEUTROPHILS # (AUTO) 3.9 10^3/uL (1.5-6.6); PLT - PLATELET COUNT 168 10^3/uL (130-450); RED BLOOD COUNT 4.41 10^6/uL (4.20-5.40); WHITE BLOOD COUNT 5.9 x10^3/uL (4.8-10.8)
[2020-12-19 12:42] LABS: % IRON SATURATION 29 % (20-50); ALBUMIN 4.1 g/dL (3.2-5.5); ALBUMIN/GLOBULIN RATIO 1.5 (1.0-2.2); ALKALINE PHOSPHATASE 80 IU/L (42-121); ALT ALANINE AMINOTRANSFERASE 23 IU/L (10-60); AST ASPARTATE AMINOTRANSFERASE 20 IU/L (10-42); BILIRUBIN,TOTAL 0.6 mg/dL (0.2-1.0); BUN - BLOOD UREA NITROGEN 15 mg/dL (6-20); CALCIUM 9.3 mg/dL (8.5-10.3); CARBON DIOXIDE - CO2 28 mmol/L (21-32); CHLORIDE 105 mmol/L (101-111); CHOL/HDL RATIO 3.2 (<4.4); CHOLESTEROL 208 mg/dL; CREATININE 0.8 mg/dL (0.4-1.0); GFR - MDRD 72 (>89); GLUCOSE 111 mg/dL (70-100); HDL CHOLESTEROL 66 mg/dL; IRON 100 ug/dL (28-170); LDL CHOLESTEROL,CALCULATED 127 mg/dL; LDL/HDL RATIO 1.9 (<4.4); POTASSIUM 4.2 mmol/L (3.5-5.0); SODIUM 143 mmol/L (135-145); TOTAL IRON BINDING CAPACITY 344 ug/dL (250-450); TOTAL PROTEIN 6.9 g/dL (6.7-8.2); TRANSFERRIN 246 mg/dL (192-382); TRIGLYCERIDES 75 mg/dL; VLDL CHOLESTEROL 15 mg/dL
[2020-12-19 12:56] LABS: THYROID STIMULATING HORMONE 3.12 uIU/mL (0.34-5.60)
[2020-12-19 12:57] LABS: FREE T3 3.59 pg/mL (2.5-3.9)
[2020-12-19 12:58] LABS: FREE T4 (FREE THYROXINE) 0.99 ng/dL (0.58-1.64)
[2020-12-19 13:02] LABS: FERRITIN 46.5 ng/mL (11.0-306.8)
== END 2020-12-19 23:59 | disposition home or self-care (01) ==
LOC: LAB 07:00
PROVIDERS: ATTEND Family Medicine
DX: D64.9 Anemia, unspecified (principal); E78.2 Mixed hyperlipidemia; E03.9 Hypothyroidism, unspecified
CPT/HCPCS: 36415; 80053; 80061; 82728; 83540; 83721; 84439; 84443; 84466; 84481; 85025

== ENCOUNTER 2021-02-13 08:14 | Day surgery (SDC) | payer MEDICARE, OTHER ==
[2021-02-13] MEDS ORDERED: ONDANSETRON 4 MG/2 ML VIAL IVP PRN (09:13)
[2021-02-13] MEDS ORDERED: MORPHINE 2 MG/ML CARPUJECT IVP PRN (09:13)
[2021-02-13] MEDS ORDERED: NALOXONE 0.4 MG/ML VIAL IVP PRN (09:13)
[2021-02-13] MEDS ORDERED: ATROPINE ABBOJECT 1 MG/10 ML SYRINGE IVP PRN (09:13)
[2021-02-13] MEDS ORDERED: fentaNYL 100 MCG/2 ML VIAL IVP PRN (09:13)
[2021-02-13] MEDS ORDERED: METOCLOPRAMIDE 10 MG/2 ML VIAL IVP PRN (09:13)
[2021-02-13] MEDS ORDERED: ePHEDrine 50 MG/ML VIAL IVP PRN (09:13)
[2021-02-13] MEDS ORDERED: HYDROmorphone 0.5 MG/0.5 ML SYRINGE IVP PRN (09:13)
[2021-02-13] MEDS ORDERED: LACTATED RINGERS 1,000 ML IV ONE ×2 (09:15→11:28)
--- NOTE | 2021-02-13 09:36 | ANESTHESIA ---
Pre-Anesthesia VS, & Labs - Diagnosis dysphagia, abd pain, screening - Procedure EGD, Colonoscopy Vital Signs: Temp Pulse Resp BP Pulse Ox 37 C 90 16 144/82 H 96 02/13/21 08:43 02/13/21 08:43 02/13/21 08:43 02/13/21 08:43 02/13/21 08:43 Height: 5 ft 4 in Weight (kg): 90 kg Body Mass Index: 34.0 BMI Classification: Obese - NPO >8 hours - Is Patient ?: No Home Medications and Allergies Home Medications: Ambulatory Orders dilTIAZem HCL [Diltiazem 24Hr ER (Xr)] 180 mg PO DAILY 02/10/21 Apixaban [Eliquis] 5 mg PO DAILY 02/13/21 Active Medications Atropine Sulfate (Atropine Abboject 1 Mg/10 Ml Syringe) 0.5 mg IVP Q5M PRN PRN Reason: Bradycardia Stop: 02/14/21 09:13 Ephedrine Sulfate (Ephedrine 50 Mg/Ml Vial) 10 mg IVP Q5M PRN PRN Reason: HYPOTENSION Stop: 02/14/21 09:13 Fentanyl (Fentanyl 100 Mcg/2 Ml Vial) 25 - 50 mcg IVP Q5M PRN PRN Reason: BREAKTHROUGH PAIN (2nd Choice) Stop: 02/14/21 09:13 Hydromorphone HCl (Hydromorphone 0.5 Mg/0.5 Ml Syringe) 0.2 - 0.6 mg IVP Q5M PRN PRN Reason: PAIN (First Choice) Stop: 02/14/21 09:13 Lactated Ringer's (Lr) 1,000 mls @ 100 mls/hr IV .Q10H MARIA ALEJANDRA Stop: 02/13/21 19:59 Metoclopramide HCl (Metoclopramide 10 Mg/2 Ml Vial) 10 mg IVP Q6HR PRN PRN Reason: N/V not relieved by Zofran Morphine Sulfate (Morphine 2 Mg/Ml Carpuject) 2 - 4 mg IVP Q5M PRN PRN Reason: PAIN (3rd Choice) Stop: 02/14/21 09:13 Naloxone HCl (Naloxone 0.4 Mg/Ml Vial) 0.1 mg IVP Q2M PRN PRN Reason: RESP RATE <8 Stop: 02/14/21 09:13 Ondansetron HCl (Ondansetron 4 Mg/2 Ml Vial) 4 mg IVP ONCE PRN PRN Reason: N/V (First Choice) Stop: 02/14/21 09:13 Levothyroxine Sodium [Euthyrox] 88 mcg PO DAILY 07/18/20 Losartan [Cozaar] 100 mg PO DAILY 07/18/20 Cholecalciferol (Vitamin D3) [Vitamin D3] 2,000 units PO DAILY 08/02/20 dilTIAZem HCL [Diltiazem 24Hr ER (Xr)] 180 mg PO DAILY 02/10/21 Apixaban [Eliquis] 5 mg PO DAILY 02/13/21 Allergies/Adverse Reactions: Allergies Allergy/AdvReac Type Severity Reaction Status Date / Time celecoxib [From Celebrex] Allergy Unknown Verified 08/01/20 16:28 hydroxyzine [From Vistaril] Allergy Unknown Verified 08/01/20 16:28 ibuprofen Allergy Unknown Verified 08/01/20 16:28 lactose Allergy Unknown Verified 08/03/20 07:56 lisinopril Allergy Unknown Verified 08/01/20 16:28 wheat Allergy Unknown Verified 08/01/20 16:28 Anes History & Medical History - Anesthetic History Anesthesia Complications: reports: No previous complications Family history of Anesthesia Complications: Denies Family history of Malignant Hyperthermia: Denies - Medical History Cardiovascular: reports: Hypertension, High cholesterol, Atrial fibrillation, Other Pulmonary: reports: None, Other Gastrointestinal: reports: Hiatal hernia, Diverticulitis Urinary: reports: None Neuro: reports: Headaches, Tremors Musculoskeletal: reports: Osteoarthritis, Osteopenia, Other Endocrine/Autoimmune: reports: HyPOthyroidism Blood Disorders: reports: None Skin: reports: None Smoking Status: Never smoker - Surgical History General: reports: Appendectomy Cardiothoracic: reports: Other Gynecologic: reports: section, Hysterectomy, Oophrectomy, Breast reduction Orthopedic: reports: Other Exam General: Alert, Oriented x3, Cooperative Dental: WNL Mouth Openin Fingerbreadth Neck Mobility: Normal Mallampati classification: I Thyromental Distance: 4-6 cm Respiratory: Lungs clear Cardiovascular: Regular rate Plan Anesthesia Type: General, Total IV Regional Block: Per Surgeon's request for Post Op pain control Consent for Procedure(s) Verified and Reviewed: Yes Code Status: Attempt Resuscitation ASA classification: 2-Mild systemic disease Is this case an emergency?: No
[2021-02-13] MEDS ORDERED: LACTATED RINGERS 1,000 ML IV SCH (10:00)
[2021-02-13] MEDS ORDERED: PROPOFOL 1000 MG/100 ML 1,000 MG/100 ML BOTTLE IV ONE (10:22)
[2021-02-13] MEDS ORDERED: LIDOCAINE-PF 2% 10 ML AMP SUBQ ONE (10:22)
[2021-02-13 12:09] VITALS: BP 137/81
--- NOTE | 2021-02-13 15:34 | ANESTHESIA POST OP EVALUATION ---
Anesthesia Post Eval - Post Anesthesia Eval Vitals: Last Vital Signs Temp 36.4 C L 02/13/21 12:08 Pulse 65 02/13/21 12:08 Resp 15 02/13/21 12:08 BP 137/81 H 02/13/21 12:08 Pulse Ox 98 02/13/21 12:08 CV Function Including HR & BP: Stable Pain Control: Satisfactory Nausea & Vomiting: Negative Mental Status: Baseline Respiratory Status: Airway Patent Hydration Status: Satisfactory Anesthesia Complications: None
== END 2021-02-13 08:15 | disposition home or self-care (01) ==
LOC: SDS 08:14
PROVIDERS: ATTEND Surgery
PROC: 0DB78ZX Excision of Stomach, Pylorus, Via Natural or Artificial Opening Endoscopic, Diagnostic (ICD-10-PCS; 2021-02-13)
PROC: 0DB48ZX Excision of Esophagogastric Junction, Via Natural or Artificial Opening Endoscopic, Diagnostic (ICD-10-PCS; 2021-02-13)
PROC: 0DJD8ZZ Inspection of Lower Intestinal Tract, Via Natural or Artificial Opening Endoscopic (ICD-10-PCS; principal; 2021-02-13 10:00)
PROC: 0DB98ZX Excision of Duodenum, Via Natural or Artificial Opening Endoscopic, Diagnostic (ICD-10-PCS; 2021-02-13 10:00)
DX: R10.9 Unspecified abdominal pain (principal); K59.00 Constipation, unspecified; K57.30 Diverticulosis of large intestine without perforation or abscess without bleeding; R13.10 Dysphagia, unspecified; K29.50 Unspecified chronic gastritis without bleeding; K21.00 Gastro-esophageal reflux disease with esophagitis, without bleeding; Z87.19 Personal history of other diseases of the digestive system; I48.91 Unspecified atrial fibrillation; J98.4 Other disorders of lung; Z79.01 Long term (current) use of anticoagulants; Z85.43 Personal history of malignant neoplasm of ovary; E66.9 Obesity, unspecified; Z68.34 Body mass index [BMI] 34.0-34.9, adult
CPT/HCPCS: 43239; 45378; J7120

== ENCOUNTER 2021-02-20 14:51 | Outpatient (CLI) | payer MEDICARE ==
[2021-02-20 15:32] LABS: BASOPHILS % (AUTO) 0.6 %; EOSINOPHILS # (AUTO) 0.1 10^3/uL (0.0-0.7); EOSINOPHILS % (AUTO) 1.9 %; HCT - HEMATOCRIT 39.6 % (37.0-47.0); HGB - HEMOGLOBIN 13.3 g/dL (12.0-16.0); LYMPHOCYTES # (AUTO) 1.7 10^3/uL (1.5-3.5); LYMPHOCYTES % (AUTO) 25.5 %; MEAN CORPUSCULAR HGB CONC 33.6 g/dL (32.0-36.0); MEAN CORPUSCULAR VOLUME 89.2 fL (81.0-99.0); MEAN PLATELET VOLUME 10.4 fL (7.9-10.8); MONOCYTES # (AUTO) 0.7 10^3/uL (0.0-1.0); MONOCYTES % (AUTO) 10.2 %; NEUTROPHILS # (AUTO) 4.2 10^3/uL (1.5-6.6); NEUTROPHILS % (AUTO) 61.5 %; PLT - PLATELET COUNT 173 10^3/uL (130-450); RED BLOOD COUNT 4.44 10^6/uL (4.20-5.40); RED CELL DISTRIBUTION WIDTH 12.9 % (12.0-15.0); WHITE BLOOD COUNT 6.8 x10^3/uL (4.8-10.8)
[2021-02-20 16:37] LABS: % IRON SATURATION 18 % (20-50); ALBUMIN 4.3 g/dL (3.2-5.5); ALBUMIN/GLOBULIN RATIO 1.4 (1.0-2.2); ALKALINE PHOSPHATASE 79 IU/L (42-121); ALT ALANINE AMINOTRANSFERASE 23 IU/L (10-60); AST ASPARTATE AMINOTRANSFERASE 20 IU/L (10-42); BILIRUBIN,TOTAL 0.8 mg/dL (0.2-1.0); BUN - BLOOD UREA NITROGEN 15 mg/dL (6-20); CALCIUM 9.3 mg/dL (8.5-10.3); CARBON DIOXIDE - CO2 28 mmol/L (21-32); CHLORIDE 104 mmol/L (101-111); CHOL/HDL RATIO 2.8 (<4.4); CHOLESTEROL 197 mg/dL; CREATININE 0.6 mg/dL (0.4-1.0); GFR - MDRD 100 (>89); GLUCOSE 95 mg/dL (70-100); HDL CHOLESTEROL 70 mg/dL; IRON 60 ug/dL (28-170); LDL CHOLESTEROL,CALCULATED 112 mg/dL; LDL/HDL RATIO 1.6 (<4.4); POTASSIUM 3.9 mmol/L (3.5-5.0); SODIUM 140 mmol/L (135-145); TOTAL IRON BINDING CAPACITY 333 ug/dL (250-450); TOTAL PROTEIN 7.4 g/dL (6.7-8.2); TRANSFERRIN 238 mg/dL (192-382); TRIGLYCERIDES 73 mg/dL; VLDL CHOLESTEROL 15 mg/dL
[2021-02-20 16:50] LABS: THYROID STIMULATING HORMONE < 0.08 uIU/mL (0.34-5.60)
[2021-02-20 16:52] LABS: FREE T3 3.53 pg/mL (2.5-3.9); FREE T4 (FREE THYROXINE) 0.92 ng/dL (0.58-1.64)
[2021-02-20 16:54] LABS: FERRITIN 67.2 ng/mL (11.0-306.8)
== END 2021-02-20 14:52 | disposition home or self-care (01) ==
LOC: LAB 14:51
PROVIDERS: ATTEND Family Medicine
DX: D64.9 Anemia, unspecified (principal); E78.2 Mixed hyperlipidemia; E03.9 Hypothyroidism, unspecified
CPT/HCPCS: 36415; 80053; 80061; 82728; 83540; 83721; 84439; 84443; 84466; 84481; 85025

== ENCOUNTER 2023-08-14 08:45 | Outpatient (CLI) | payer MEDICARE, OTHER ==
[2023-08-14 09:13] LABS: BASOPHILS % (AUTO) 0.5 %; EOSINOPHILS # (AUTO) 0.2 10^3/uL (0.0-0.7); EOSINOPHILS % (AUTO) 2.5 %; HGB - HEMOGLOBIN 14.2 g/dL (12.0-16.0); LYMPHOCYTES # (AUTO) 1.2 10^3/uL (1.5-3.5); LYMPHOCYTES % (AUTO) 19.3 %; MEAN CORPUSCULAR HEMOGLOBIN 29.3 pg (27.0-31.0); MEAN CORPUSCULAR HGB CONC 32.3 g/dL (32.0-36.0); MEAN CORPUSCULAR VOLUME 90.9 fL (81.0-99.0); MEAN PLATELET VOLUME 10.6 fL (7.9-10.8); MONOCYTES # (AUTO) 0.6 10^3/uL (0.0-1.0); MONOCYTES % (AUTO) 9.8 %; NEUTROPHILS # (AUTO) 4.3 10^3/uL (1.5-6.6); NEUTROPHILS % (AUTO) 67.6 %; PLT - PLATELET COUNT 203 10^3/uL (130-450); RED BLOOD COUNT 4.84 10^6/uL (4.20-5.40); RED CELL DISTRIBUTION WIDTH 13.1 % (12.0-15.0); WHITE BLOOD COUNT 6.3 x10^3/uL (4.8-10.8)
[2023-08-14 09:18] LABS: ALBUMIN/GLOBULIN RATIO 1.3 (1.0-2.2); ALKALINE PHOSPHATASE 74 IU/L (42-121); ALT ALANINE AMINOTRANSFERASE 14 IU/L (10-60); AST ASPARTATE AMINOTRANSFERASE 16 IU/L (10-42); BILIRUBIN,TOTAL 0.4 mg/dL (0.2-1.0); BUN - BLOOD UREA NITROGEN 20 mg/dL (6-20); CALCIUM 9.3 mg/dL (8.5-10.3); CARBON DIOXIDE - CO2 30 mmol/L (21-32); CHLORIDE 106 mmol/L (101-111); CHOL/HDL RATIO 3.3 (<4.4); CHOLESTEROL 217 mg/dL; CREATININE 0.7 mg/dL (0.6-1.3); GFR - MDRD 83 (>89); GLUCOSE 117 mg/dL (74-104); HDL CHOLESTEROL 65 mg/dL; LDL CHOLESTEROL,CALCULATED 133 mg/dL; POTASSIUM 3.9 mmol/L (3.5-4.5); SODIUM 141 mmol/L (135-145); TRIGLYCERIDES 93 mg/dL (48-352); VLDL CHOLESTEROL 19 mg/dL
[2023-08-14 09:34] LABS: THYROID STIMULATING HORMONE 2.51 uIU/mL (0.34-5.60)
== END 2023-08-14 08:46 | disposition home or self-care (01) ==
LOC: LAB 08:45
PROVIDERS: ATTEND Nurse Practitioner
DX: E78.2 Mixed hyperlipidemia (principal); Z51.81 Encounter for therapeutic drug level monitoring; E03.9 Hypothyroidism, unspecified
CPT/HCPCS: 36415; 80053; 80061; 83721; 84439; 84443; 85025

== ENCOUNTER 2024-03-25 09:55 | Outpatient (CLI) | payer MEDICARE, OTHER ==
--- NOTE | 2024-03-25 15:31 | Mammography Report ---
BILATERAL DIGITAL SCREENING MAMMOGRAM 3D/2D: 03/25/2024 CLINICAL: Routine screening. Comparison is made to exam dated: 11/07/2018 mammogram - [facility]. The breasts are almost entirely fatty (category a/<25% glandular tissue). No significant masses, calcifications, or other findings are seen in either breast. There has been no significant interval change. IMPRESSION: NEGATIVE There is no mammographic evidence of malignancy. A 1 year screening mammogram is recommended. Based on the Tyrer Cuzick model (a risk assessment model) the patient's lifetime risk is 4.0% and her 10 year risk is 2.2%. According to the ACR, ACS, and NCCN guidelines, an annual breast MRI exam dirk g with mammogram is recommended if the patient's lifetime risk is 20% or greater. This exam was interpreted at Station ID: [id number]. NOTE: For mammograms, a report in lay terms will be sent to the patient. Approximately 15% of breast malignancies will not be visualized mammographically. In the management of a palpable breast mass, a negative mammogram must not discourage biopsy of a clinically suspicious lesion. Electronically Signed By: Padmaja martin/margaret:03/25/2024 13:27:40 letter sent: No_Letter ACR BI-RADS Category 1: Negative 3341F PARENCHYMAL PATTERN: (F) - The breast(s) demonstrate(s) diffuse fatty replacement. BI-RADS CATEGORY: (1) - 1 RECOMMENDATION: (ANNUAL) - Recommend routine annual screening mammography. [id number] 1 year screening LATERALITY: (B)
== END 2024-03-25 09:56 | disposition home or self-care (01) ==
LOC: DI 09:55
PROVIDERS: ATTEND Nurse Practitioner
DX: Z12.31 Encounter for screening mammogram for malignant neoplasm of breast (principal)

== ENCOUNTER 2024-03-25 10:35 | Outpatient (CLI) | payer MEDICARE, OTHER ==
[2024-03-25 10:49] LABS: BASOPHILS % (AUTO) 0.6 %; EOSINOPHILS # (AUTO) 0.2 10^3/uL (0.0-0.7); EOSINOPHILS % (AUTO) 2.2 %; HCT - HEMATOCRIT 44.2 % (37.0-47.0); HGB - HEMOGLOBIN 14.9 g/dL (12.0-16.0); LYMPHOCYTES # (AUTO) 1.2 10^3/uL (1.5-3.5); LYMPHOCYTES % (AUTO) 17.4 %; MEAN CORPUSCULAR HEMOGLOBIN 29.6 pg (27.0-31.0); MEAN CORPUSCULAR HGB CONC 33.7 g/dL (32.0-36.0); MEAN CORPUSCULAR VOLUME 87.9 fL (81.0-99.0); MEAN PLATELET VOLUME 10.3 fL (7.9-10.8); MONOCYTES # (AUTO) 0.7 10^3/uL (0.0-1.0); MONOCYTES % (AUTO) 9.6 %; NEUTROPHILS # (AUTO) 4.8 10^3/uL (1.5-6.6); NEUTROPHILS % (AUTO) 69.6 %; PLT - PLATELET COUNT 194 10^3/uL (130-450); RED BLOOD COUNT 5.03 10^6/uL (4.20-5.40); WHITE BLOOD COUNT 6.9 x10^3/uL (4.8-10.8)
[2024-03-25 11:15] LABS: ALBUMIN 4.3 g/dL (3.2-5.5); ALBUMIN/GLOBULIN RATIO 1.5 (1.0-2.2); ALKALINE PHOSPHATASE 77 IU/L (42-121); ALT ALANINE AMINOTRANSFERASE 23 IU/L (10-60); AST ASPARTATE AMINOTRANSFERASE 19 IU/L (10-42); BILIRUBIN,TOTAL 0.5 mg/dL (0.2-1.0); BUN - BLOOD UREA NITROGEN 29 mg/dL (6-20); CALCIUM 9.5 mg/dL (8.5-10.3); CARBON DIOXIDE - CO2 27 mmol/L (21-32); CHLORIDE 104 mmol/L (101-111); CHOL/HDL RATIO 3.8 (<4.4); CHOLESTEROL 243 mg/dL; CREATININE 0.8 mg/dL (0.6-1.3); GFR - MDRD 71 (>89); GLUCOSE 147 mg/dL (74-104); HDL CHOLESTEROL 64 mg/dL; LDL CHOLESTEROL,CALCULATED 158 mg/dL; LDL/HDL RATIO 2.5 (<4.4); POTASSIUM 3.6 mmol/L (3.5-4.5); SODIUM 137 mmol/L (135-145); TOTAL PROTEIN 7.1 g/dL (6.4-8.9); TRIGLYCERIDES 107 mg/dL; VLDL CHOLESTEROL 21 mg/dL
[2024-03-25 11:31] LABS: THYROID STIMULATING HORMONE 9.85 uIU/mL (0.34-5.60)
--- NOTE | 2024-03-25 16:28 | DEXA Report ---
PROCEDURE: Dexa Spine and/or Hip INDICATIONS: POSTMENOPAUSAL TECHNIQUE: Dual energy x-ray absorptiometry (DXA) was performed on a Versa System. Regions measur ed are the AP Spine, femoral neck, and if needed forearm. COMPARISON: DEXA 02/21/2018 FINDINGS: Lumbar Spine: Bone Mineral Density: 1.07 g/cm/cm,T score: -0.8, compared to -0.4. Left Femoral Neck: Bone Mineral Density: 0.74 to g/cm/cm, T score: -2.1, compared to -1.6. Left Hip: Bone Mineral Density: 0.864 g/cm/cm,T score: -1.1, compared to -0.9. FRAX risk factors: None given. 10 year risk of major osteoporotic fracture: 11.1% major osteoporotic fracture = hip, clinical vertebral, proximal humerus, distal forearm 10 year risk of hip fracture: 2.0% (T score greater or equal to -1.0: NORMAL) (T score from -1.1 to -2.4: OSTEOPENIA) (T score less than or equal to -2.5 to: OSTEOPOROSIS) Impression: By WHO criteria, this patient has moderate to severe osteopenia in the femoral neck, notably progress rina. Patients with diagnosis of osteoporosis or osteopenia should have regular bone mineral density assess ment. For those eligible for Medicare, routine testing is allowed once every 2 years. Testing frequ ency can be increased for patients who have rapidly progressing disease or for those who are receivin g medical therapy to restore bone mass. Reviewed by: Kaelyn Mcghee MD on 03/25/2024 4:27 PM PDT Approved by: Kaelyn Mcghee MD on 03/25/2024 4:27 PM PDT Station ID: [id number]
== END 2024-03-25 10:36 | disposition home or self-care (01) ==
LOC: DI 10:35
PROVIDERS: ATTEND Nurse Practitioner
DX: M85.88 Other specified disorders of bone density and structure, other site (principal); I10 Essential (primary) hypertension; E78.2 Mixed hyperlipidemia; E03.9 Hypothyroidism, unspecified; Z51.81 Encounter for therapeutic drug level monitoring; Z78.0 Asymptomatic menopausal state
CPT/HCPCS: 36415; 80053; 80061; 83721; 84439; 84443; 85025